=== PATIENT | male | born 1970 | race Two or more races ===

== ENCOUNTER 2024-02-20 15:06 | Outpatient (AMB) | payer MEDICAID, SELFPAY ==
--- NOTE | 2024-02-20 15:21 | A.OFFVIS_ITS ---
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 Patient reports pain at the PIP and MCP joints, bilaterally. Patient denies numbness and tingling. Has not tried steroid injections or PT/OT. Denies any prior injuries or surgeries to the hands. Patient is interested on a steroid injection day. 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 He is ESL and speaks some Chinese. No giving officer used today He complains of painful locking & catching of his bilateral middle & ring fingers, onset ~2 months ago. He says he had a prior injection ~1 year ago, Right Ring finger, which may have been done in [place]. He also complains of pain in his MCP & PIP joints of his fingers. He says he has been avoiding making a full fist due to his finger locking. 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 Review of Systems Const All systems reviewed & are unremarkable except as noted in HPI and below Physical Exam Vital Signs: BMI result Body Mass Index 34.9 Const General: cooperative, healthy appearing and no acute distress Orientation/consciousness: patient oriented x3 HEENT Head: Yes normocephalic and Yes atraumatic Eyes EOM: EOMs intact bilaterally Resp Effort & Inspection: normal respiratory effort and able to speak in complete sentences Cardio Jugular venous distension: no JVD Skin General skin exam: turgor normal Rashes: no rashes Neuro General: patient oriented x3 Extrem Other: Evaluation of Bilateral Upper Extremity: The patient is alert, oriented, and in no acute distress Neuro: Median, Ulnar, Radial nerves motor and sensory grossly intact Vascular: Cap refill brisk ROM: Initially he had some stiffness in all his digits bilaterally. He could only bring his fingertips ~8cm from his palm and back into extension We worked on ROM exercises today in clinic for more than 15 minutes, before leaving clinic he could bring his fingers closed to a fist and back into extension Visible & palpable locking & catching of the middle & ring fingers bilaterally Tender over the a1 piter of the middle & ring fingers bilaterally Skin: No lacerations or abrasions. General: No Ecchymosis. No Erythema or evidence of infection. Psych Appearance: grossly normal Affect: normal affect Attitude: cooperative Office Procedures AMB Fracture Care Details: No fracture, injections [id number] x 2 Fracture Billing Code: Fracture Billing Code Assessment & Plan Assessment & Plan (1) Trigger finger, right middle finger: Code(s): M65.331 - Trigger finger, right middle finger Category: Medical (2) Trigger finger, right ring finger: Code(s): M65.341 - Trigger finger, right ring finger Category: Medical (3) Trigger finger, left middle finger: Code(s): M65.332 - Trigger finger, left middle finger Category: Medical (4) Trigger finger, left ring finger: Code(s): M65.342 - Trigger finger, left ring finger Category: Medical (5) Stiffness of joints of both hands: Code(s): M25.641 - Stiffness of right hand, not elsewhere classified; M25.642 - Stiffness of left hand, not elsewhere classified Category: Medical Plan Assessment & Plan: 1. Right middle finger trigger finger 2. Right ring finger trigger finger 3. Left middle finger trigger finger 4. Left ring finger trigger finger I educated her about this condition I discussed operative and non-operative treatment options The patient would like to proceed with injections today, some for each hand He is hesitant to consider surgery as he says he cannot afford to take the time off of work to recover. He declined any OT hand therapy He was given a note for work to work light duty, with a 4lb weight limit, for the next 2 days The risks and benefits of operative treatment were discussed with the patient and the patient wishes to proceed with surgery. These risks include, but are not limited to risk of damage to blood vessels, nerves, tendons, infection, recurrence, incomplete relief of preoperative symptoms, persistent pain, possible need for further surgery and the risks associated with regional blocks and anesthesia. Injection #1: The risks and benefits of a steroid injection including but not limited to risk of damage to blood vessels, nerves, tendons, infection, skin bleaching, failure to improve symptoms, increased pain, and possible need for further injections or other intervention were discussed with the patient and the patient wishes to proceed with the steroid injection. Once consent was obtained, I sterilely prepped the area over the A1 piter of the flexor tendon sheath of the Right Middle finger. I then injected the flexor tendon sheath with a combination of 1 mL of dexamethasone (4mg/ml), and 1% lidocaine. The patient tolerated the procedure well with no complications. Injection #2: The risks and benefits of a steroid injection including but not limited to risk of damage to blood vessels, nerves, tendons, infection, skin bleaching, failure to improve symptoms, increased pain, and possible need for further injections or other intervention were discussed with the patient and the patient wishes to proceed with the steroid injection. Once consent was obtained, I sterilely prepped the area over the A1 piter of the flexor tendon sheath of the Left Ring finger. I then injected the flexor tendon sheath with a combination of 1 mL of dexamethasone (4mg/ml), and 1% lidocaine. The patient tolerated the procedure well with no complications. If the patient continues to have locking and catching 4-6 weeks following this injection, they may call to schedule appointment to discuss alternative treatment options He may make an appointment in 3-4 weeks to have his other fingers injected if he wants. 5. Bilateral hand stiffness Likely secondary to disuse I educated him about this condition We worked on ROM exercises today in clinic I recommend he work on ROM exercises at home, 20X daily for minimum 10 seconds each Please note that greater than 30 minutes was spent with this patient going over the history, evaluating the patient and radiographs, formulating possible treatment options, discussing them with the patient, and documenting the visit. Scribed for Michaela Dobbins MD by Brett Jamil, medical research tech, on 02/20/24 at 3:40 PM, EST. Coding Level of Care Code Est Pt Level 4 (90983) Diagnoses Trigger finger, right middle finger M65.331 Trigger finger, right ring finger M65.341 Trigger finger, left middle finger M65.332 Trigger finger, left ring finger M65.342 Stiffness of joints of both hands M25.641; M25.642 CPT Codes Fracture Care - Fracture Billing Code: Fracture Billing Code ([id number])
[2024-02-20 15:23] VITALS: BMI 34.9
== END 2024-02-20 16:40 | disposition home or self-care (01) ==
PROVIDERS: PCP Nurse Practitioner Family; Visit Provider Orthopaedic Surgery
DX: M65.331 Trigger finger, right middle finger (principal); M65.341 Trigger finger, right ring finger; M65.332 Trigger finger, left middle finger; M65.342 Trigger finger, left ring finger; M25.641 Stiffness of right hand, not elsewhere classified; M25.642 Stiffness of left hand, not elsewhere classified
CPT/HCPCS: 20550; 99203

== ENCOUNTER → 2024-02-20 15:06 | Outpatient (BNVA) | payer MEDICAID, SELFPAY | PROVIDERS: PCP Nurse Practitioner Family; Visit Provider Orthopaedic Surgery | DX: M65.331 Trigger finger, right middle finger (principal); M65.341 Trigger finger, right ring finger; M65.332 Trigger finger, left middle finger; M65.342 Trigger finger, left ring finger; M25.641 Stiffness of right hand, not elsewhere classified; M25.642 Stiffness of left hand, not elsewhere classified | CPT/HCPCS: 20550; 99202; J1100; J2003 ==

== ENCOUNTER 2024-03-19 15:25 | Outpatient (AMB) | payer MEDICAID, SELFPAY ==
--- NOTE | 2024-03-19 16:13 | MHC.OFFVIS ---
Vital Signs 03/19/24 16:23 Height 5 ft 5 in Weight 210 lb BMI 34.9 Intake Visit Reasons: OV - B/L trigger finger, last inj 02/20/24 Intake Note: Mayda is a 53 yo right hand dominant male who presents today for a follow up evaluation of bilateral middle and ring trigger fingers. Patient's right middle finger and left ring fingers were injected on 02/20/24 however the injection did not help with his left hand ring finger. States unable to fully bend his finger down to make a full fist. Allergies No Known Allergies Allergy (Verified 03/19/24 16:22) HPI HPI OV - B/L trigger finger, last inj 02/20/24: Details: Mayda is a 53 year old right hand dominant [place] man who returns to discuss his bilateral trigger fingers He is ESL and speaks some Scottish. No salesperson surgical appliances used today He complains of painful locking & catching of his bilateral middle & ring fingers, onset ~3 months ago. He was last seen and his right middle & left ring fingers were injected on 02/20/24. He says this helped his right middle finger, but he continues to have painful locking of his left ring finger. He says he is bothered mostly by his left hand He also complains of pain in his MCP & PIP joints of his fingers. He has been working on ROM exercises at home. 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 Injection for the right middle finger made that feel much better. The right ring finger locks and catches but it does not hurt him. Visible but mild catching of the Left middle & Right ring fingers. He says these do not bother him very much right now. He is most Tender over the a1 piter of the Left ring finger, and still has locking and catching of the left ring finger. This is his most bothersome complaint and what he wants taken care of. No swelling or erythema.. Assessment & Plan Assessment & Plan (1) Trigger finger, right middle finger: Code(s): M65.331 - Trigger finger, right middle finger Category: Medical (2) Trigger finger, right ring finger: Code(s): M65.341 - Trigger finger, right ring finger Category: Medical (3) Trigger finger, left middle finger: Code(s): M65.332 - Trigger finger, left middle finger Category: Medical (4) Trigger finger, left ring finger: Code(s): M65.342 - Trigger finger, left ring finger Category: Medical (5) Stiffness of joints of both hands: Code(s): M25.641 - Stiffness of right hand, not elsewhere classified; M25.642 - Stiffness of left hand, not elsewhere classified Category: Medical Plan Assessment & Plan: 1. Left ring finger trigger finger, S/P injection Date of injection: 02/20/24 No improvement with injection This is his primary complaint today 4. Left middle finger trigger finger Patient said this was not bothering him very much and did not want an injection today. 2. Right ring finger trigger finger Patient said that this was also not bothering him very much and did not want an injection today. 3. Right middle finger trigger finger, S/P injection Date of injection: 02/20/24 Improved with injection, now not bothering him at all. I educated her about this condition I discussed operative and non-operative treatment options The patient declined any injections today, as his other fingers are not causing him a large amount of pain, with the exception of the left ring finger. He wanted another injection in the left ring finger, but I felt it was too early for him to have another injection in this finger. He is hesitant to consider surgery as he says he cannot afford to take the time off of work to recover at this time He declined any OT hand therapy He was given a note for work to work light duty, with a 4lb weight limit for the left hand, until his next appointment He will follow up in 4 weeks to see how his left hand is doing. Consider possible repeat injection for the left ring finger, and discuss surgical options for the left ring finger sometime on 06/2024 or 07/2024, when he thinks he might be able to get some time off from work. Please note that greater than 30 minutes was spent with this patient documenting the visit, performing physical exam, and particularly discussing treatment options with the patient. 5. Bilateral hand stiffness Likely secondary to disuse I educated him about this condition We worked on ROM exercises today in clinic I recommend he work on ROM exercises at home, 20X daily for minimum 10 seconds each Scribed for Michaela Dobbins MD by Brett Jamil, medical laboratory technicians, on 03/19/24 at 4:40 PM, EST. Coding Level of Care Code Est Pt Level 4 (58332) Diagnoses Trigger finger, right middle finger M65.331 Trigger finger, right ring finger M65.341 Trigger finger, left middle finger M65.332 Trigger finger, left ring finger M65.342 Stiffness of joints of both hands M25.641; M25.642
[2024-03-19 16:23] VITALS: BMI 34.9
== END 2024-03-19 16:30 | disposition home or self-care (01) ==
PROVIDERS: PCP Nurse Practitioner Family; Visit Provider Orthopaedic Surgery
DX: M65.331 Trigger finger, right middle finger (principal); M65.341 Trigger finger, right ring finger; M65.332 Trigger finger, left middle finger; M65.342 Trigger finger, left ring finger; M25.641 Stiffness of right hand, not elsewhere classified; M25.642 Stiffness of left hand, not elsewhere classified
CPT/HCPCS: 99214

== ENCOUNTER → 2024-03-19 15:25 | Outpatient (BNVA) | payer MEDICAID, SELFPAY | PROVIDERS: PCP Nurse Practitioner Family; Visit Provider Orthopaedic Surgery | DX: M65.331 Trigger finger, right middle finger (principal); M65.332 Trigger finger, left middle finger; M65.341 Trigger finger, right ring finger; M65.342 Trigger finger, left ring finger; M25.641 Stiffness of right hand, not elsewhere classified; M25.642 Stiffness of left hand, not elsewhere classified | CPT/HCPCS: 99212 ==

== ENCOUNTER 2024-04-16 15:26 | Outpatient (AMB) | payer MEDICAID, SELFPAY ==
--- NOTE | 2024-04-16 15:33 | MHC.OFFVIS ---
Vital Signs 04/16/24 15:34 Height 5 ft 5 in Weight 210 lb BMI 34.9 Intake Visit Reasons: OV-Left ring finger injection vs surgery Intake Note: Mayda is a 53 year old right hand dominant male who presents today for a follow up of left ring trigger finger, S/P steroid injection DOS: 02/20/24. Patient would like to repeat injection today. Allergies No Known Allergies Allergy (Verified 04/16/24 15:50) HPI HPI OV-Left ring finger injection vs surgery: Details: Mayda is a 53 year old right hand dominant [place] man who returns to discuss his bilateral trigger fingers. He is Romanian as SL and speaks Romanian comfortably in clinic today. He continues to complain of painful locking of his left ring finger. His left ring finger was last injected on 02/20/24, with no relief. He has been working some on his range of motion since last time. 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 He is concerned about time off from work, but believes he may be ready to have the surgery perhaps in June of July of next year. 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 He can make a tight fist on the right and extend all his digits of his right hand without any difficulty All in all he says his right hand is fine. Injection for the right middle finger made that feel much better. The right ring finger locks and catches but it does not hurt him. He is most tender over the a1 piter of the left ring finger, and still has locking and catching of the left ring finger. This is his most bothersome complaint and what he wants taken care of today Psych Appearance: grossly normal Affect: normal affect Attitude: cooperative Office Procedures AMB Fracture Care Details: No fracture, injection Fracture Billing Code: Fracture Billing Code Assessment & Plan Assessment & Plan (1) Trigger finger, right middle finger: Code(s): M65.331 - Trigger finger, right middle finger Category: Medical (2) Trigger finger, right ring finger: Code(s): M65.341 - Trigger finger, right ring finger Category: Medical (3) Trigger finger, left middle finger: Code(s): M65.332 - Trigger finger, left middle finger Category: Medical (4) Trigger finger, left ring finger: Code(s): M65.342 - Trigger finger, left ring finger Category: Medical (5) Stiffness of joints of both hands: Code(s): M25.641 - Stiffness of right hand, not elsewhere classified; M25.642 - Stiffness of left hand, not elsewhere classified Category: Medical Plan Assessment & Plan: 1. Left ring finger trigger finger, S/P injection Date of injection: 04/16/24, 02/20/24 No improvement with prior injection This is his primary complaint today 2. Right middle finger trigger finger, S/P injection Date of injection: 02/20/24 Improved with injection, now not bothering him at all. 3. Left middle finger trigger finger Patient said this was not bothering him 4. Right ring finger trigger finger Patient said that this was also not bothering him I educated him about this condition I discussed operative and non-operative treatment options The patient continues to complain of pain in his left ring finger, and would like a repeat injection. He is not interested in injections for his other trigger fingers at this time He is hesitant to consider surgery as he says he cannot afford to take the time off of work to recover at this time. He may consider surgery sometime in 06/2024 or 07/2024 when he could get time off of work. He declined any OT hand therapy, this may be due to an insurance concern as he is here on a Green card. Injection #1: The risks and benefits of a steroid injection including but not limited to risk of damage to blood vessels, nerves, tendons, infection, skin bleaching, failure to improve symptoms, increased pain, and possible need for further injections or other intervention were discussed with the patient and the patient wishes to proceed with the steroid injection. Once consent was obtained, I sterilely prepped the area over the A1 piter of the flexor tendon sheath of the Left ring finger. I then injected the flexor tendon sheath with a combination of 1 mL of dexamethasone (4mg/ml), and 1% lidocaine. The patient tolerated the procedure well with no complications. After the injection I had him make a fist, his left ring finger locked down very hard when making a fist, and some force was required to unlock his finger. I explained to him that I think it is not very likely that the injection alone is going to solve this problem, and that I think he should consider an A1 piter release. He will follow up in 2 months to see how he is doing, and to possibly discuss surgery for his left ring trigger finger sometime in July 17. Bilateral hand stiffness Likely secondary to disuse I educated him about this condition He has made some good improvements in his ROM. His right hand range of motion is normal. On the left side he can not bring the left ring finger into a tight fist, largely because it will lock up. I recommend he work on ROM exercises at home Scribed for Michaela Dobbins MD by eloisa Rivera scribe, on 04/16/24 at 3:40 PM, EST. Scribe Plan - Not visible on output: Scribed for Michaela Dobbins MD by eloisa Rivera scribe, on [ ] at [ ], EST. Coding Level of Care Code Est Pt Level 3 (94109) Diagnoses Trigger finger, right middle finger M65.331 Trigger finger, right ring finger M65.341 Trigger finger, left middle finger M65.332 Trigger finger, left ring finger M65.342 Stiffness of joints of both hands M25.641; M25.642 CPT Codes Fracture Care - Fracture Billing Code: Fracture Billing Code ([id number])
[2024-04-16 15:34] VITALS: BMI 34.9
== END 2024-04-16 15:50 | disposition home or self-care (01) ==
PROVIDERS: PCP Nurse Practitioner Family; Visit Provider Orthopaedic Surgery
DX: M65.331 Trigger finger, right middle finger (principal); M65.341 Trigger finger, right ring finger; M65.332 Trigger finger, left middle finger; M65.342 Trigger finger, left ring finger; M25.641 Stiffness of right hand, not elsewhere classified; M25.642 Stiffness of left hand, not elsewhere classified
CPT/HCPCS: 99213

== ENCOUNTER → 2024-04-16 15:26 | Outpatient (BNVA) | payer MEDICAID, SELFPAY | PROVIDERS: PCP Nurse Practitioner Family; Visit Provider Orthopaedic Surgery | DX: M65.342 Trigger finger, left ring finger (principal); M65.331 Trigger finger, right middle finger; M65.341 Trigger finger, right ring finger; M65.332 Trigger finger, left middle finger; M25.641 Stiffness of right hand, not elsewhere classified; M25.642 Stiffness of left hand, not elsewhere classified | CPT/HCPCS: 20550; 99212; J1100; J2003 ==

== ENCOUNTER 2024-06-19 15:05 | Outpatient (AMB) | payer MEDICAID, SELFPAY ==
[2024-06-19 15:08] VITALS: BMI 34.9
--- NOTE | 2024-06-19 15:08 | MHC.OFFVIS ---
Vital Signs 06/19/24 15:08 Height 5 ft 5 in Weight 210 lb BMI 34.9 Intake Visit Reasons: OV-LT RF trigger injection follow up-inj 04/16/24 Intake Note: Mayda is a 53 year old right hand dominant male who presents today for a follow up of left ring trigger finger, S/P steroid injection 04/16/2024. Patient reports that this last injection was not helpful. His finger continues to lock and catch. He would like to discuss possible surgical intervention. Allergies No Known Allergies Allergy (Verified 06/19/24 15:11) HPI HPI OV-LT RF trigger injection follow up-inj 04/16/24: Details: Mayda is a 53 year old right hand dominant English man who returns to discuss his bilateral trigger fingers. He is Wolof as SL and speaks Wolof comfortably in clinic today. He continues to complain of painful locking of his left ring finger. His left ring finger was last injected on 04/16/24, with very limited relief. He would like to discuss possible surgery. He has been working some on his range of motion since last time. 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 He says he is willing to take 1 week off of work after surgery, but he needs to return to work after the week to provide for his family. 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 He is most tender over the a1 piter of the left ring finger, and still has locking and catching of the left ring finger. This is his most bothersome complaint Psych Appearance: grossly normal Affect: normal affect Attitude: cooperative Assessment & Plan Assessment & Plan (1) Trigger finger, left ring finger: Code(s): M65.342 - Trigger finger, left ring finger Category: Medical (2) Trigger finger, left middle finger: Code(s): M65.332 - Trigger finger, left middle finger Category: Medical (3) Trigger finger, right middle finger: Code(s): M65.331 - Trigger finger, right middle finger Category: Medical (4) Trigger finger, right ring finger: Code(s): M65.341 - Trigger finger, right ring finger Category: Medical (5) Stiffness of joints of both hands: Code(s): M25.641 - Stiffness of right hand, not elsewhere classified; M25.642 - Stiffness of left hand, not elsewhere classified Category: Medical Plan Assessment & Plan: 1. Left ring finger trigger finger, S/P injection Date of injection: 04/16/24, 02/20/24 No improvement with prior injection This is his primary complaint today I educated him about this condition I discussed operative and non-operative treatment options The patient continues to complain of pain in his left ring finger, and does not want a repeat injection I recommend surgery, and he is in agreement He declined any OT hand therapy, this may be due to an insurance concern as he is here on a Green card. He would like to return to work on light duty after 1 week off following surgery. He says he works 7 days a week to provide for his family. Xin will prepare a note saying return to work 1 week following surgery, light duty with a 1lb weight limit with his LUE, keep clean & dry. The risks and benefits of operative treatment were discussed with the patient and the patient wishes to proceed with surgery. These risks include, but are not limited to risk of damage to blood vessels, nerves, tendons, infection, recurrence, incomplete relief of preoperative symptoms, persistent pain, possible need for further surgery and the risks associated with regional blocks and anesthesia. The plan is to take the patient to the operating room sometime in the next few weeks for the following procedures: 1. Left ring finger trigger release, under local All of the preoperative paperwork including the consent was reviewed today. All the patient's questions were answered. The patient understands that they will be contacted by our attraction attendant soon to schedule this procedure He denies Diabetes, blood thinners, asthma, heart, lung, kidney issues 3. Right middle finger trigger finger, S/P injection Date of injection: 02/20/24 Improved with injection, now not bothering him at all. 2. Left middle finger trigger finger Patient said this was not bothering him 4. Right ring finger trigger finger Patient said that this was also not bothering him 5. Bilateral hand stiffness Likely secondary to disuse I educated him about this condition He has made some good improvements in his ROM. His right hand range of motion is normal. On the left side he can not bring the left ring finger into a tight fist, largely because it will lock up. I recommend he work on ROM exercises at home Scribed for Michaela Dobbins MD by Brett Jamil, medical secretary receptionist, on 06/19/24 at 3:30 PM, EST. Scribe Plan - Not visible on output: Scribed for Michaela Dobbins MD by Brett Jamil medical secretary receptionist, on [ ] at [ ], EST. Coding Level of Care Code Est Pt Level 4 (09133) Diagnoses Trigger finger, left ring finger M65.342 Trigger finger, left middle finger M65.332 Trigger finger, right middle finger M65.331 Trigger finger, right ring finger M65.341 Stiffness of joints of both hands M25.641; M25.642
--- OUTSIDE RECORDS SUMMARY | 2024-06-19 16:06 | XMS_ITS | Clinical Summary ---
Author Organization [facility] Address [address] [place] [address] Care Team Providers Care Crowning Inspector Name Role Phone Annabella Sharp ARVIN Primary Care Provider [phone] Encounters Date Type Department Care Team Description 05/29/2024 Telephone Gastroenterology - [place] 175 [facility] [address] [phone] Austyn Lim MD SPECIAL PROCEDURE from Last 3 Months Social History Tobacco Use Types Packs/Day Years Used Date Smoking Tobacco: Never Assessed Sex and Gender Information Value Date Recorded Sex Assigned at Not on file Gender Identity Not on file Sexual Orientation Not on file Plan of Treatment Upcoming Encounters Date Type Department Care Team (Late st Contact Info) Description 10/10/2024 12:30 PM EDT Appointment [facility] Endoscopy [address] [place] [phone] Burton Ruiz MD [address] [address] Health Maintenance Due Date Last Done Comments DTaP,Tdap,and Td Vaccines (1 - Tdap) 1991 Hepatitis B Vaccines (1 of 3 - 19+ 3-dose series) 1991 Cholesterol Screening (Lipid Panel) 04/16/2022 Colorectal Cancer Screening: Colonoscopy 04/16/2022 HIV Screening 04/16/2022 Hepatitis C Screening 04/16/2022 Lung Cancer Screening (Low D ose CT) 04/16/2022 Social Influencers of Health Screening 04/16/2022 Zoster Vaccines (1 of 2) 2022 COVID-19 Vaccine ( - 2023-2 5 season) 2024 Influenza Vaccine (#1) 2024 Depression Screening 01/16/2025 01/17/2024 HIB Vaccines Aged Out No longer eligi ble based on patient's age to complete this topic HPV Vaccines Aged Out No longer eligi ble based on patient's age to complete this topic Hepatitis A Vaccines Aged Out No long er eligible based on patient's age to complete this topic IPV Vaccines Aged Out No longer eligi ble based on patient's age to complete this topic MMR Vaccines Aged Out No longer eligi ble based on patient's age to complete this topic Meningococcal ACWY Vaccine Aged Out N o longer eligible based on patient's age to complete this topic Pneumococcal Vaccine: Pediat rics (0 to 5 Years) and At-Risk Patients (6 to 64 Years) Aged Out No longer eligi ble based on patient's age to complete this topic RSV Immunization Patients Un gale 20 months Aged Out No longer eligible b ased on patient's age to complete this topic Varicella Vaccines Aged Out No longer eligible based on patient's age to complete this topic Care Teams Crowning Inspector Relationship Specialty Start Date End Date Annabella Sharp NP [address] [place] [id number] PCP - General 01/23/24
--- OUTSIDE RECORDS SUMMARY | 2024-06-19 16:06 | XMS_ITS | Encounter Summary ---
Author Organization [facility] Address [address] [place] [address] Care Team Providers Care Terminal Make Up Operator Name Role Phone Annabella eason ARVIN Primary Care Provider [phone] Reason for Visit * Reason Onset Date Comments SPECIAL PROCEDURE 05/29/2024 Encounter Details Date Type Department Care Team ([facility] st Contact Info) Description 05/29/2024 Telephone Gastroenterology - [place] [address] [place] [phone] Austyn Lim MD [address] [place] [address] SPECIAL PROCEDURE Social History Tobacco Use Types Packs/Day Years Used Date Smoking Tobacco: Never Assessed Sex and Gender Information Value Date Recorded Sex Assigned at Not on file Gender Identity Not on file Sexual Orientation Not on file documented as of this encounter Progress Notes * Sophia Ruiz - 05/31/2024 3:29 PM EST Scheduled. * Stacia Ragland - 05/31/2024 10:08 AM EST Patient returning call to reschedule colonoscopy. Please call after 3:00 pm * Sophia Ruiz - 05/31/2024 9:39 AM EST 2nd attempt to schedule an appointment patient left message to call back Screening-any * Macy Garsia - 05/30/2024 3:09 PM EST Patient calling back to reschedule, please call back to [phone] * Sophia Ruiz - 05/30/2024 8:40 AM EST 1st attempt to schedule an appointment patient left message to call back * Macy Garsia - 05/29/2024 3:02 PM EST Patient calling back to reschedule cancelled procedure (provider out) documented in this encounter Plan of Treatment Upcoming Encounters Date Type Department Care Team (Late st Contact Info) Description 10/10/2024 12:30 PM EDT Appointment [facility] Endoscopy [address] [place] [phone] Burton Ruiz MD [address] [address] documented as of this encounter Visit Diagnoses Not on filedocumented in this encounter Care Teams Terminal Make Up Operator Relationship Specialty Start Date End Date Annabella Sharp NP [address] [place] [address] PCP - General 01/23/24 documented as of this encounter
--- OUTSIDE RECORDS SUMMARY | 2024-06-19 16:06 | XMS_ITS | Clinical Summary ---
Author Organization [facility] Address [address] [place] [address] Care Team Providers Care Pattern Assembler Name Role Phone Annabella Sharp COOK PRESSURE Primary Care Provider [phone] Source Comments PLEASE NOTE, if this patient is a minor, it may be UNLAWFUL to discuss sensitive information that is contained in these records (such as FAMILY PLANNING, MENTAL HEALTH or SUBSTANCE ABUSE) with the minor patient's parent or other person without the patient's specific authorization.[facility] Allergies No known active allergies Medications sildenafiL (VIAGRA) 50 mg tablet Take 1 Tablet by mouth once daily as needed for erectile dysfunction 9 Tablet 3 03/04/20 22 Active fluticasone (FLONASE) 50 mcg/actuation nasal sprayIndications:A llergic rhinitis, unspecified seasonality, unspecified trigger Place 1 [place] in both nostrils twice a day 16 g 2 04/29/20 22 Active blood pressure test kit-[facility] SMBP Program - 3x/week 1 Kit 07/30/19 23 Active ketoconazole (NIZORAL) 2 % [id number] [place] [phone] 120.00 mL 1 15 Authorized by: ZULEYKA AGGARWAL 10/17/19 23 Active fexofenadine (ARI) 180 mg tabletIndications: Non-seasonal allergic rhinitis, unspecified trigger Take 1 Tablet by mouth once daily 30 Tablet 2 09/01/19 24 Active triamcinolone (NASACORT) 55 mcg nasal inhalerIndications :Non-seasonal allergic rhinitis, unspecified trigger Place 2 Sprays into the nostril(s) once daily 16 g 2 09/01/19 24 Active acetaminophen (TYLENOL) 500 mg tabletIndications: Chronic pain of both ankles Take 2 Tablets by mouth every 8 (eight) hours as needed for pain (Maximum 4000 mg/day) 120 Tablet 1 01/17/20 Active ibuprofen 800 mg tabletIndications: Chronic pain of both ankles Take 1 Tablet by mouth 3 (three) times daily as needed for pain 60 Tablet 1 01/17/20 24 Active atorvastatin (LIPITOR) 80 mg tabletIndications: Mixed hyperlipidemia Take 1 Tablet by mouth nightly at bedtime For cholesterol 90 Tablet 1 01/24/20 24 Active metFORMIN (GLUCOPHAGE) 500 mg tabletIndications: Prediabetes Take 1 Tablet by mouth 2 (two) times daily with a meal For prediabetes 180 Tablet 1 01/24/20 Active levothyroxine 88 mcg tabletIndications: Hypothyroidism, unspecified type Take 1 Tablet by mouth every morning before breakfast For thyroid 90 Tablet 1 01/31/20 24 Active Active Problems Problem Noted Date Diagnosed Date Chronic rhinitis 05/07/2024 Overview (05/07/2024): Saw ENT on 04/2024. Class 2 severe obesity due t o excess calories with serious comorbidity and body mass index (BMI) of 36.0 to 36.9 in adult ([facility]) 07/24/2023 Prediabetes 03/04/2022 Erectile dysfunction due to arterial insufficien cy 03/04/2022 Abdominal bloating 11/11/2020 Other headache syndrome 08/03/2020 Snoring 08/03/2020 Slow transit constipation 08/03/2020 Trigger middle finger of right hand 08/03/2020 Mixed hyperlipidemia 08/03/2020 Subclinical hypothyroidism 06/26/2020 Hepatitis A immune Overview (06/26/2020): per serology Resolved Problems Problem Noted Date Diagnosed Date Resolved Date Class 1 obesity due to exces s calories without serious comorbidity with body mass index (BMI) of 33.0 to 33.9 in adult 03/04/202203/2024 Essential hypertension 05/07 Encounters Date Type Department Care Team Description 05/28/2024 Interim Notes [address] [phone] Annabella Sharp FNP Snoring (Primary Dx) 05/07/2024 4:00 PM EST Telemedicine Visit [facility] [address] [place] [address] Annabella Sharp, TARAH Prediabetes (Primary Dx); Mixed hyperlipidemia 05/07/2024 Travel from Last 3 Months Immunizations Name Administration Dates Next Due Flu, Preservative Free 04/23/2021,02/17/2019 PFIZER COVID VACCINE, PURPLE CAP, 12+ 11/03/2021 TDAP 04/23/2021 Family History Medical History Relation Name Comments Heart Problems Father Diabetes Mother Heart Problems Mother Stomach Cancer Paternal Aunt Relation Name Status Comments Father Mother Paternal Aunt Alive Social History Tobacco Use Types Packs/Day Years Used Date Smoking Tobacco: Every Day Cigarettes 0.6 35 Smokeless Tobacco: Never Tobacco Cessation:Ready to Q uit: Yes; Counseling Given: Yes Comments:Stil smoking Alcohol Use Standard Drinks/Week Comments Not Currently 0 (1 standard drink = 0.6 oz pur e alcohol) Social Connections Answer Date Recorded Connectedness 0 01/25/2024 Financial Resource Strain Answer Date R ecorded Financial Resource Strain 0 2020 Stress Answer Date Recorded Stress 0 06/18/2020 Physical Activity Answer Date Recorded Physical Activity 0 06/18/2020 Food Insecurity Answer Date Recorded Food 0 02/08/2024 Transportation Needs Answer Date Record ed Transportation 0 06/18/2020 Housing Stability Answer Date Recorded Housing 0 06/18/2020 Safety and Environment Answer Date Richy rded Safety 0 06/18/2020 Utilities Answer Date Recorded Utilities 0 06/18/2020 Employment Answer Date Recorded Stress 0 01/25/2024 Sex and Gender Information Value Date Recorded Sex Assigned at Male 06/18/2020 11:51 AM PST Legal Sex Male 12:32 PM PDT Gender Identity Male 06/18/2020 11:51 AM PST Sexual Orientation Straight 06/18/2020 11 :51 AM PST Last Filed Vital Signs Vital Sign Reading Time Taken Comments Blood Pressure 130/84 01/17/2024 3:04 PM EDT Pulse 79 01/17/2024 3:04 PM EDT Temperature 36.9 ??C (98.4 ??F) 01/17/2024 3:04 PM ED T Respiratory Rate 16 01/17/2024 3:04 PM EDT Oxygen Saturation 98% 01/17/2024 3:04 PM EDT Inhaled Oxygen Concentration - - Weight 99.8 kg (220 lb) 01/17/2024 3:04 PM EDT Height 165.1 cm (5' 5 ) 01/17/2024 3:04 PM EDT Body Mass Index 36.61 01/17/2024 3:04 PM EDT Plan of Treatment Health Maintenance Due Date Last Done Comments CT Colonography 2017 Colonoscopy 2017 Colorectal Cancer Screening 2017 FIT/gFOBT 2017 Fecal DNA 2017 Flexible Sigmoidoscopy 2017 Alcohol and Drug Screen 05/15/2024 01/17/20 24, 07/24/2023, 07/29/2022, Additional history exists Depression Annual Screen 05/15/2024 01/17/2024 Annual Preventive Care Visit 01/16/202508/2023, 11/03/2021, 04/23/2021 Tobacco Cessation Counseling (#1) 01/16/2025 023 Lung Cancer Screening 02/12/2025 02/13/2024, 024 TSH Monitoring 03/27/2025 03/27/2024, 09/0 08/2023, 12/02/2022, Additional history exists Diabetes Screening 05/16/2025 05/16/2024, 0 01/17/2024, 01/17/2024, Additional history exists Lipid Screening 05/16/2025 05/16/2024, 09/0 08/2023, 07/24/2023, Additional history exists Imm-DTaP/Tdap/Td (2 - Td or Tdap) 04/23/2031 021 HIV Screening Completed 06/18/2020 Hepatitis C Screening Completed 06/18/2020 Imm-Influenza Discontinued 04/23/2021, 02/17/2019 [id number] Discontinued 11/03/2021, 10/13, 10/04/2020 Imm-Hepatitis B Discontinued Imm-Pneumococcal Discontinued Imm-Zoster, Recombinant Discontinued Goals Goal Patient Goal Type Associated Problems Recent Progress Patient-Stated? Author Blood Pressure < 130/80 Blood Pressure 130/84(2023 3:04 PM EDT) No Percy Mcclellan PharmD Hypertension: Decrease sodium intake General On track( 023 11:55 AM PDT) No Percy Mcclellan PharmD Procedures Procedure Name Priority Date/Time Associated Diagnosis Comments HGBA1C W/MPG Routine 05/16/2024 12:48 PM EST Prediabetes LIPID PANEL Routine 05/16/2024 12:48 PM EST Mixed hyperlipidemia REFERRAL TO EAR, NOSE AND THROAT Routine 05/02/2024 3:00 AM EST Non-seasonal allergic rhinitis, unspecified trigger REFERRAL SCANNED DOCUMENT 04/16/2024 3:00 AM EST TSH W/RFLX FREE T4 Routine 03/27/2024 3: 09 PM EST Hypothyroidism, unspecified type REFERRAL SCANNED DOCUMENT 03/19/2024 3:00 AM EST LOW DOSE CT LUNG SCREENING Routine 02/13/2024 3:00 AM EDT Cigarette nicotine dependence without complication ANTIBODY HIV-1&HIV-2 SINGLE RESULT Routine 06/18/2020 3:43 PM EST Essential hypertension Routine general medical examination at a health care facility Pain in both hands HEPATITIS C ANTIBODY Routine 06/18/2020 3:43 PM EST Essential hypertension Routine general medical examination at a health care facility Pain in both hands from Last 3 Months or Most Recently Relevant to Health Maintenance Results * (ABNORMAL) HGBA1C W/MPG (05/16/2024 12:48 PM EST) HEMOGLOBIN A1C 6.0(H) <5.7 % of total Hgb [facility] Comment: For someone without known diabetes, a hemoglobin A1c value between 5.7% and 6.4% is consistent with prediabetes and should be confirmed with a follow-up test. For someone with known diabetes, a value <7% indicates that their diabetes is well controlled. A1c targets should be individualized based on duration of diabetes, age, comorbid conditions, and other considerations. This assay result is consistent with an increased risk of diabetes. Currently, no consensus exists regarding use of hemoglobin A1c for diagnosis of diabetes for children. MEAN PLASMA GLUCOSE 136 mg/dL (calc) [facility] Blood Blood / Unknown 05/16/2024 1 2:48 PM EST 05/16/2024 12:49 PM EST Narrative [facility] - 05/17/2024 3:33 AM EST FASTING:YES Annabella Sharp [facility] - BLOOD DRAW Edited Result - Final [employer] [facility] [address] [address], [employer] [address] [address] * (ABNORMAL) LIPID PANEL (05/16/2024 12:48 PM EST) CHOLESTEROL, TOTAL 177 <200 mg/dL [facility] HDL CHOLESTEROL 43 > OR = 40 mg/dL [facility] TRIGLYCERIDES 148 <150 mg/dL [facility] LDL-CHOLESTEROL 108(H) 99 mg/dL (calc) [facility] Comment: Reference range: <100 Desirable range <100 mg/dL for primary prevention; ?? <70 mg/dL for patients with CHD or diabetic patients with > or = 2 CHD risk factors. LDL-C is now calculated using the Dioyn-Pool calculation, which is a validated novel method providing better accuracy than the Friedewald equation in the estimation of LDL-C. Diony SS et al. PATITO. 2013;310(19): 6297-1534 (http://education.[employer]/faq/JSM187) CHOL/HDLC RATIO 4.1 <5.0 (calc) [facility] NON-HDL CHOLESTEROL 134(H) <130 mg/dL (calc) [facility] Comment: For patients with diabetes plus 1 major ASCVD risk factor, treating to a non-HDL-C goal of <100 mg/dL (LDL-C of <70 mg/dL) is considered a therapeutic option. Blood Blood / Unknown 05/16/2024 1 2:48 PM EST 05/16/2024 12:49 PM EST Narrative [employer] - 05/17/2024 3:33 AM EST FASTING:YES us Annabella Sharp [facility] - BLOOD DRAW Final Result Performing Organization Address [facility]/ZIP Co de Phone Number [employer] [address] [address], [facility] [address] [address] * REFERRAL TO EAR, NOSE AND THROAT (05/02/2024 3:00 AM EST) 05/02/2024 3:00 AM EST us Annabella Sharp COOK PRESSURE REFERRAL Final Result * REFERRAL SCANNED DOCUMENT (04/16/2024 3:00 AM EST) Only the most recent of2 resultswithin the time period is included. 04/16/2024 3:00 AM EST Annabella Sharp COOK PRESSURE SCAN REFERRAL Final Result * TSH W/RFLX FREE T4 (03/27/2024 3:09 PM EST) TSH W/REFLEX TO FT4 0.64 0.40 - 4.50 mIU/L [employer] [facility] Blood Blood / Unknown 03/27/2024 3 :09 PM EST 03/27/2024 3:09 PM EST Narrative [employer] [facility] - 03/28/2024 4:25 AM EST FASTING:NO Annabella Sharp [facility] - BLOOD DRAW Final Result [employer] [facility] [address] [address], [employer] [facility] [address] [address] * LOW DOSE CT LUNG SCREENING (02/13/2024 3:00 AM EDT) 02/13/2024 3:00 AM EDT Annabellazuly Sharp [facility] IMG CT Edited Result - Final * HEPATITIS C ANTIBODY (06/18/2020 3:43 PM EST) Pathologist [facility] HEPATITIS C VIRUS SCREEN NEGATIVE NEGATIVE [facility] Blood Blood / Unknown 06/18/2020 3 :43 PM EST 06/18/2020 7:[address] [facility] - 06/18/2020 9:45 PM EST [employer], [place] [address] Sign Letterer - Sandra Thomason MD PT ID [id number] ORD# [id number] Annabella [facility] - BLOOD DRAW Edited Result - Final Performing Organization Address [facility] [place] [place] [address], * HIV-1 & HIV-2 ANTIBODIES (06/18/2020 3:43 PM EST) [facility] HIV 1 AND 2 ANTIBODY SCREEN NEGATIVE NEGATIVE [facility] Comment: This assay is a 4th generation assay allowing for earlier detection of HIV infection by detecting the presence of the HIV-1 p24 antigen as well as the traditional antibodies to HIV type 1 (including group O) and type 2. ??Use of a 4th generation assay is the current CDC recommendation for HIV screening. Blood Blood / Unknown 06/18/2020 3 :43 PM EST 06/18/2020 7:[address] [facility] - 06/18/2020 9:46 PM EST [employer], [place] [address] Sign Letterer - Sandra Thomason MD PT ID [id number] ORD# [id number] Annabellazuly Sharp [facility] - BLOOD DRAW Edited Result - Final Performing Organization Address [facility] Co de Phone Number [address] [place] [address], from Last 3 Months or Most Recently Relevant to Health Maintenance Insurance [id number] [facility] [employer] Care Teams Pattern Assembler Relationship Specialty Start Date End Date Annabella Sharp FNP [address] [place] [address] PCP - General Internal Medicine 02/19/20
--- OUTSIDE RECORDS SUMMARY | 2024-06-19 16:06 | XMS_ITS | Data Portability ---
Author Organization [place] - [facility], Allergy Address [address] [place] [phone] Care Team Providers Care Medical Office Administrator Name Role Phone AMY ANDRADE Referring Provider [phone] Assessment Encounter Date Assessment Date Assessment LastModified by Organization Details LastModified Time 05/02/2024 05/02/2024 53-year-old male with 20-year history of nasal congestion. He notes while he was living in [place] he mostly had congestion when the weather was warm. Over the last 8 years while living in the [facility] he has noted congestion both with the warm and cold weather. He has tried antihistamines and nasal steroids without improvement. Family notes significant snoring. He is also gained weight since coming to [place]. I do not see any obvious nasal polyps or significant septal deviation. Suggest trial of ipratropium bromide nasal spray 2 sprays each nostril 3 times daily he can discontinue any other nasal sprays. Will also arrange for a sleep study. [email or web address] Not available 05/02/2024 15:16:52 Plan of Treatment Reminders Order Date Submit Date Provider Last Modified By Organization Details Last Modified Time Details Appointments None recorde d. Lab None recorde d. Referral None recorde d. Procedures polysom nograph y, diagnos tic (PROC) 2023 024 [email or web address] [facility]), [address] [place] [address], [id number], 5 14:38:41 Surgeries None recorde d. Imaging None recorde d. Medication Orders ipratro pium bromide 21 mcg (0.03 %) nasal spray 2023 024 [id number], [address] , [place], [place], [id number], 4 15:15:44 Patient TargetsNo targets recorded. Patient InstructionsNo instructions recorded. Reason for Referral None Reported. Problems Name Problem SNOMED Code Status Onset Date Resolution Date Notes Provider Name and Address Organization Details Recorded Time Chronic rhinitis 51757932 Active 024 BRANDI DING MD [address] [facility], [place], [phone], [facility] - [facility] 4 15:14:54 Snoring 76536394 Active 024 BRANDI DING MD [address] [facility], [address], [place], [phone], [facility] - [facility] 4 15:15:08 Overweight 357959787 Active 024 BRANDI DING MD [address] [facility], [address], [place], [phone], [facility] - [facility] 4 15:17:18 Problem Notes None recorded. Medical Equipment None Reported. Medications Name Sig Start Date Stop Date Status Note LastModified by Organization Details LastModified Time losartan 50 mg tablet TAKE 1 TABLET BY MOUTH EVERY MORNING FOR BLOOD PRESSURE active Not Available Not Available No t Available cyclobenzapr ine 10 mg tablet active Not Available Not Available Not Available atorvastatin 40 mg tablet TAKE 1 TABLET BY MOUTH EVERY EVENING FOR CHOLESTEROL active Not Available Not Available Not Available metformin 500 mg tablet TAKE 1 TABLET BY MOUTH TWICE DAILY WITH A MEAL FOR PREDIABETES active Not Available Not Available Not Available atorvastatin 80 mg tablet TAKE 1 TABLET BY MOUTH EVERY NIGHT AT BEDTIME FOR CHOLESTEROL active Not Available Not Available Not Available prednisone 10 mg tablet active Not Available Not Available Not Available ibuprofen 800 mg tablet TAKE 1 TABLET BY MOUTH THREE TIMES DAILY NEEDED FOR PAIN active Not Available Not Available No t Available tizanidine 4 mg tablet TAKE 1 TABLET BY MOUTH THREE TIMES DAILY FOR 7 DAYS NEEDED FOR MUSCLE SPASMS active Not Available Not Available No t Available prednisone 20 mg tablet TAKE 2 TABLETS BY MOUTH DAILY FOR 5 DAYS active Not Available Not Available N ot Available sulfamethoxa zole 800 mg-trimethop rim 160 mg tablet TAKE 1 TABLET BY MOUTH EVERY 12 HOURS FOR 7 DAYS active Not Available Not Available N ot Available acetaminophe n 500 mg tablet TAKE 2 TABLETS BY MOUTH EVERY 8 HOURS NEEDED FOR PAIN - DO NOT EXCEED 4000MG DAILY active Not Available Not Available No t Available levothyroxin e 75 mcg tablet TAKE 1 TABLET BY MOUTH DAILY active Not Available Not Available Not Available levothyroxin e 88 mcg tablet TAKE 1 TABLET BY MOUTH EVERY MORNING BEFORE BREAKFAST FOR THYROID active Not Available Not Available Not Available triamcinolon e acetonide 55 mcg nasal spray aerosol USE 2 SPRAYS IN EACH NOSTRIL DAILY active Not Available Not Available No t Available mupirocin 2 % topical ointment APPLY TOPICALLY TO THE AFFECTED AREA TWICE DAILY FOR 10 DAYS active Not Available Not Available No t Available diclofenac sodium 50 mg tablet,delay ed release TAKE 1 TABLET BY MOUTH FOUR TIMES DAILY FOR 7 DAYS active Not Available Not Available N ot Available ibuprofen 600 mg tablet TAKE 1 TABLET BY MOUTH THREE TIMES DAILY FOR 7 DAYS active Not Available Not Available N ot Available methylpredni solone 4 mg tablets in a dose pack FOLLOW PACKAGE DIRECTIONS active Not Available Not Available N ot Available ipratropium bromide 21 mcg (0.03 %) nasal spray Linneus 2 sprays 3 times a day by intranasal route. 2023 active Not Available Not Available Not Avai lable diclofenac 1 % topical gel APPLY 2 GRAMS TOPICALLY TO SKIN FOUR TIMES DAILY active Not Available Not Available No t Available Allergy Relief (fexofenadin e) 180 mg tablet TAKE 1 TABLET BY MOUTH DAILY active Not Available Not Available Not Available Vitals Date Recorded Body height Body mass index (BMI) Body weight Provider Name and Address Organization Details Last Updated DateTime 05/02/2024 165.1 cm 33.3 kg/m2 99897.47 g Joey Villatoro [place] - [facility] 05/02/2024 15:00:12 Social History Question Answer Notes LastModified by Organizat ion Details LastModified Time Tobacco Smoking Status Current Every Day Smoker BRANDI ROJO MD [address] [place] [address], [phone], [place] - [facility] 05/02/2024 15:13:01 What Is Your Level Of Alcohol Consumption? None Information not available 05/02/2024 How Much Tobacco Do You Smoke? 0.5 PPD Information not available 05/02/2024 Do You Use Any Illicit Or Recreational Drugs? No Information not available 05/02/2024 Do You Or Have You Ever Used Any Other Forms Of Tobacco Or Nicotine? Yes Information not available 05/02/2024 Sex: Unknown Functional Status None recorded. Mental Status None recorded. Family History Nothing Reported. Medical History Condition Response Hypertension Y Past Encounters Encounter ID Performer Location Encounter Start Date Encounter Closed Date Diagnosis/Indication Diagnosis SNOMED-CT Code Diagnosis ICD10 Code Diagnosis Note [id number] BRANDI SMITH MD [facility] [address] [phone] 05/02/2024 14:37:28 05/02/2024 15:37:55 Chronic rhinitis 61670032 J31.0 Snoring 40729346 R06.83 Body mass index 30+ - obesity 637142546 Z68.33 Health Concerns Section Related Observation LastModified by Organization Detai ls LastModified Time None Recorded Concern Status LastModified by Organization Details LastModified Time None Recorded Advance Directives Directive None Recorded Payers Encounter Date Sequence Insurance Name Policy Number Policy Campos Covered Member ID Campos Member ID Guarantor Name 05/02/2024 1 [place] [employer] [facility] [employer] (MEDICAID) Mayda Otto [id number] Mayda Otto Notes Date Note Type Note Provider Name and Address Organization Details Recorded Time 05/02/2024 text/html Experiencing sin us pressure radiating from left cheek to right cheek and up to forehead. Reports trial of multiple anti-histamines tablets and corticosteroid nasal sprays without adequate response. Feels congestion in all temperatures for 20 years. Present both in [place] and in (last 8 years) BRANDI ROJO MD [address] [place] [address], [place], [address], [facility] - [facility] 05/02/2024 15:18:14
--- OUTSIDE RECORDS SUMMARY | 2024-06-19 16:06 | XMS_ITS | Encounter Summary ---
Author Organization [facility] Address [address] [place] [address] Care Team Providers Care Industrial Rehabilitation Consultant Name Role Phone Annabella Sharp Primary Care Provider [phone] Reason for Referral * Care Coordination (Routine) - Closed Specialty Diagnoses / Procedures Referred By Queenie whitfield Referred To Contact Sleep Medicine - Psych/Neurology Diagnoses Snoring Annabella Sharp FNP [address] [place] [phone] Phone: tel: fax: OTHER Referral ID Status Reason Start Date Expiration Date V isits Requested Visits Authorized [id number] Closed Specialty Services Required 05/28/2024 05/28/2025 1 1 Comments Referral for sleep study. Dx; snoring, headache, HTN. obesity Need tajik int. Please eval and treat. fax number for [phone] and location for [facility] [address] [place] [address] Encounter Details Date Type Department Care Team (Late st Contact Info) Description 05/28/2024 Interim Notes [facility] [address] [phone] Annabella Sharp FNP [address] [place] [phone] Snoring (Primary Dx) Social History Tobacco Use Types Packs/Day Years Used Date Smoking Tobacco: Every Day Cigarettes 0.6 35 Smokeless Tobacco: Never Comments:Stil smoking Alcohol Use Standard Drinks/Week Comments [...] Orientation Straight 06/18/2020 11 :51 AM PST COVID-19 Exposure Response Date Recorded In the last 10 days, have yo u been in contact with someone who was confirmed or suspected to have Coronavirus/COVID-19? No / Unsure 05/07/2024 11:38 AM EST documented as of this encounter Progress Notes * TARAH Swain - 05/28/2024 12:09 PM EST Per dre ref; Martha from [facility] is requesting sleep study referral. Please put the fax number for [phone] and location for [facility]. R06.83 Snoring (primary encounter diagnosis) Plan : REFERRAL TO SLEEP DISORDERS CLINIC documented in this encounter Plan of Treatment Scheduled Referrals Name Type Priority Associated Diagnoses Orde r Schedule REFERRAL TO SLEEP DISORDERS CLINIC Referral Routine Snoring Ordered: 05/28/2024 documented as of this encounter Goals Goal Patient Goal Type Associated Problems Recent Progress Patient-Stated? Author Blood Pressure < 130/80 Blood Pressure 130/84(2023 3:04 PM EDT) No Percy Mcclellan, PharmD Hypertension: Decrease sodium intake General On track( 023 11:55 AM PDT) No Percy Mcclellan, Deyanira documented as of this encounter Visit Diagnoses Diagnosis Snoring- Primary Other dyspnea and respiratory abnormality documented in this encounter Additional Health Concerns Assessment Noted Time PHQ-9 Depression Total Score: 0 01/17/20 24 3:04 PM PDT documented as of this encounter Care Teams Industrial Rehabilitation Consultant Relationship Specialty Start Date End Date Annabella Sharp FNP [address] [place] [address] PCP - General Internal Medicine 02/19/20 documented as of this encounter
== END 2024-06-19 15:43 | disposition home or self-care (01) ==
PROVIDERS: PCP Nurse Practitioner Family; Visit Provider Orthopaedic Surgery
DX: M65.342 Trigger finger, left ring finger (principal); M65.332 Trigger finger, left middle finger; M65.331 Trigger finger, right middle finger; M65.341 Trigger finger, right ring finger
CPT/HCPCS: 99214

== ENCOUNTER → 2024-06-19 15:05 | Outpatient (BNVA) | payer MEDICAID, SELFPAY | PROVIDERS: PCP Nurse Practitioner Family; Visit Provider Orthopaedic Surgery | DX: M65.342 Trigger finger, left ring finger (principal); M65.332 Trigger finger, left middle finger; M65.331 Trigger finger, right middle finger; M65.341 Trigger finger, right ring finger; M25.641 Stiffness of right hand, not elsewhere classified; M25.642 Stiffness of left hand, not elsewhere classified | CPT/HCPCS: 99212 ==

== ENCOUNTER 2024-08-26 07:51 | Day surgery (SDC) | payer MEDICAID, SELFPAY ==
[2024-08-26 09:10] VITALS: BP 152/86; PULSE 84; RESP 18; TEMP 36.8; O2SAT 98
[2024-08-26 09:20] VITALS: BMI 34.9
--- NOTE | 2024-08-26 09:40 | MHC.SHP ---
Pre-Procedural Eval Section A - 24 Hr Update-Section A only Date of Service: 08/26/24 The patient is an INPATIENT: No Changes since office visit: No Cold of Flu in the past 2 weeks, No New Medical Problems, No Changes in Medication and No Patient answered all questions The patient has been examined within 24 hours of the surgical procedure. The History & Physical has been completed within 30 days and I have reviewed it.: Yes Section B - Complete if H&P > 30 days Chief Complaint: Trigger finger, left ring finger Allergies: Allergies Allergy/AdvReac Type Severity Reaction Status Date / Time No Known Allergies Allergy Verified 08/26/24 09:14 Plan Diagnosis/Plan: Unchanged I have reviewed the history and physical and performed a pertinent physical examination on my patient. No changes have occurred unless specified. Time Spent With Patient Time: Total time managing care of this patient today ____ minutes.
--- NOTE | 2024-08-26 09:40 | W.PM.OPN ---
Operative Note Operative Note Date of Service: 08/26/24 Narrative: Operative Note Preop diagnosis: 1. Left ring finger Trigger finger Postop diagnosis: Same Procedure: 1. Left ring finger A1 piter release Surgeon: Michaela Dobbins MD Administrative Office Specialist: None Anesthesia: local block using 1% lidocaine with epinephrine Findings: No locking or catching after A1 piter release EBL: Less than 5 mL Tourniquet time: None Specimens: None Complications: None Disposition: Brought to recovery room in stable condition Plan: Follow-up for 10-14 days for wound check and suture removal Indications: The patient is 54 years old, with a left ring finger trigger finger that has been unresponsive to nonoperative management. The risks and benefits of operative treatment including but not limited to risk of damage to blood vessels, nerves, tendons, infection, persistent pain, persistent symptoms, recurrence or possible need for additional surgery were discussed with the patient and the patient wishes to proceed with surgery. Procedure: Once consent was obtained a local block was performed in the preop area using a combination of 1% lidocaine with epinephrine. The patient was then brought back to the operating suite and placed on the operative table in supine position. The left upper extremity was prepped and draped in a standard surgical fashion. Once assured that we had a good block, a 1.5 cm oblique incision was made centered over the A1 piter of the left ring finger . The incision was made through the skin to the subcutaneous tissues using a #15 blade. Careful dissection was made down to the level of the A1 piter using tenotomy scissors, with care being taken to protect the nearby neurovascular structures. A longitudinal incision was made in the A1 piter 1st using a #15 blade, then using tenotomy scissors under direct visualization. The A1 piter was noted to be thickened. Following our A1 ptier release, we no longer saw any locking or catching of the digit with flexion and extension. Once satisfied with our A1 piter release the wound was copiously irrigated with normal saline and hemostasis was obtained with a brief period of local pressure. The skin edges were reapproximated with some 5.0 nylon suture material and a sterile dressing was applied. The patient appears to have tolerated the procedure well and with no complications. All digits were well vascularized at the conclusion of the case.
[2024-08-26 11:32] VITALS: BP 134/82; PULSE 84; RESP 20; O2SAT 99
== END 2024-08-26 11:33 | disposition home or self-care (01) ==
PROVIDERS: Visit Provider Orthopaedic Surgery
PROC: (CPT 26055; principal; 2024-08-26 09:40)
DX: M65.342 Trigger finger, left ring finger (principal); M25.642 Stiffness of left hand, not elsewhere classified
CPT/HCPCS: 26055; J0171; J2003

== ENCOUNTER → 2024-08-26 07:51 | Outpatient (BNV) | payer MEDICAID, SELFPAY | PROVIDERS: Visit Provider Orthopaedic Surgery | DX: M65.342 Trigger finger, left ring finger (principal) | CPT/HCPCS: 26055 ==

== ENCOUNTER 2024-09-10 13:47 | Outpatient (AMB) | payer MEDICAID, SELFPAY ==
--- NOTE | 2024-09-10 13:51 | A.OFFVIS_ITS ---
Vital Signs 09/10/24 13:52 Height 5 ft 5 in Weight 210 lb BMI 34.9 Intake Visit Reasons: PO LT RF trigger 08/26/24 AR Intake Note: Mayda 54 yr old male presents today for his PO left ring finger trigger release from 08/26/[address] Dobbins. States locking has resolved however he now has swelling and difficulty making a close fist. Allergies No Known Allergies Allergy (Verified 09/10/24 13:59) HPI HPI PO LT RF trigger 08/26/24 AR: Details: Mayda is a 53 year old right hand dominant [place] man who returns S/P left ring finger trigger release, DOS: 08/26/24. He is ESL and speaks Colombian comfortably in clinic today. He says he no longer has any ring finger locking, but he is now having difficulty with swelling & limited ROM. He has been working some on his range of motion since last time. 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 Sutures removed and Steri-Strips applied No locking or catching of the ring finger Initially he had difficulty with finger coordination bringing to a full fist, with some stiffness when placing his hand flat on the table. He couldinitially bring his ring fingertip ~1cm from his palm We worked on ROM exercises today in clinic. Before leaving clinic, he could actively flex at both the PIP & DIP joints to make a full closed fist. Sensation is intact Cap refill is brisk Psych Appearance: grossly normal Affect: normal affect Attitude: cooperative Assessment & Plan Assessment & Plan (1) Trigger finger, left ring finger: Code(s): M65.342 - Trigger finger, left ring finger Category: Medical (2) Trigger finger, left middle finger: Code(s): M65.332 - Trigger finger, left middle finger Category: Medical (3) Trigger finger, right middle finger: Code(s): M65.331 - Trigger finger, right middle finger Category: Medical (4) Trigger finger, right ring finger: Code(s): M65.341 - Trigger finger, right ring finger Category: Medical (5) Stiffness of joints of both hands: Code(s): M25.641 - Stiffness of right hand, not elsewhere classified; M25.642 - Stiffness of left hand, not elsewhere classified Category: Medical Plan Assessment & Plan: 1. Left ring finger trigger finger, S/P release DOS: 08/26/24 No improvement with prior injections The patient appears to be doing well post-operatively I educated him about the post-operative course I explained the signs and symptoms of infection, if the patient develops any new or worsening erythema, drainage, pain, or warmth they should contact the clinic or attend the ED. I discussed activity modifications, he is to lift nothing heavier than a cellphone for the next 2 weeks He will perform gentle ROM exercises at home He should avoid any underwater activities for the next 5 days He should gently massage about the incision site to reduce the risk of hypersensitivity He was given a note for work to remain out of work until 09/23/24, he can then return to full duty, without restrictions. He can follow up prn. If he continues to have difficulty with stiffness, he can contact the clinic for a referral to OT hand therapy. 3. Right middle finger trigger finger, S/P injection Date of injection: 02/20/24 Improved with injection, now not bothering him at all. 2. Left middle finger trigger finger Patient said this was not bothering him 4. Right ring finger trigger finger Patient said that this was also not bothering him 5. Bilateral hand stiffness Likely secondary to disuse I educated him about this condition He has made some good improvements in his ROM. His right hand range of motion is normal. I recommend he work on ROM exercises at home He declined any OT hand therapy, this may be due to an insurance concern as he is here on a Green card. Scribed for Michaela Dobbins MD by Brett Jamil, manager of medical, on 09/10/24 at 2:15 PM, EST. Coding Level of Care Code Global (70300) Diagnoses Trigger finger, left ring finger M65.342 Trigger finger, left middle finger M65.332 Trigger finger, right middle finger M65.331 Trigger finger, right ring finger M65.341 Stiffness of joints of both hands M25.641; M25.642
[2024-09-10 13:52] VITALS: BMI 34.9
--- OUTSIDE RECORDS SUMMARY | 2024-09-10 15:57 | XMS_ITS | Clinical Summary ---
Author Organization [facility] Address [address] [place] [address] Phone Care Team Providers Care Open Tenter Operator Name Role Phone AshokAnnabella laureano ARVIN Primary Care Provider [phone] Social History Tobacco Use Types Packs/Day Years Used Date Smoking Tobacco: Never Assessed Sex and Gender Information Value Date Recorded Sex Assigned at Not on file Legal Sex Male 7:16 PM EST Gender Identity Not on file Sexual Orientation Not on file Plan of Treatment Upcoming Encounters Date Type Department Care Team (Late st Contact Info) Description 10/10/2024 12:30 PM EDT Appointment [facility] [address] [place] [phone] Burton Ruiz MD [address] [id number] Health Maintenance Due Date Last Done Comments DTaP,Tdap,and Td Vaccines (1 - Tdap) 1991 Hepatitis B Vaccines (1 of 3 - 19+ 3-dose series) 1991 Cholesterol Screening (Lipid Panel) 04/16/2022 Colorectal Cancer Screening: Colonoscopy 04/16/2022 HIV Screening 04/16/2022 Hepatitis C Screening 04/16/2022 Lung Cancer Screening (Low D ose CT) 04/16/2022 Social Influencers of Health Screening 04/16/2022 Pneumococcal Vaccine: 50+ Ye ars (1 of 1 - PCV) 2022 Zoster Vaccines (1 of 2) 2022 COVID-19 Vaccine (2023-2 5 season) 2024 Influenza Vaccine (Season Ended) 2025 Depression Screening 01/16/2025 01/17/2024 HIB Vaccines Aged [...] patient's age to complete this topic Meningococcal B Vaccine Aged Out No l onger eligible based on patient's age to complete [...] on patient's age to complete this topic Insurance MEDICAID - [place] Care Teams Open Tenter Operator Relationship Specialty Start Date End Date Annabella Sharp NP [address] [place] [id number] PCP - General 01/23/24
--- OUTSIDE RECORDS SUMMARY | 2024-09-10 15:57 | XMS_ITS | Clinical Summary ---
Author Organization [facility] Address [address] [place] [address] Care Team Providers Care Screener And Blender Name Role Phone Annabella Sharp WINE PASTEURIZER Primary Care Provider [phone] Source Comments PLEASE NOTE, if this patient [...] rhinitis, unspecified seasonality, unspecified trigger Place 1 [place] in both nostrils twice a day 16 g 2 04/29/20 22 Active blood pressure test kit-[facility] SMBP Program - 3x/week 1 Kit 07/30/19 23 Active ketoconazole (NIZORAL) 2 % [id number] [place] [phone] 120.00 mL 1 15 Authorized by: ZULEYKA [...] (Maximum 4000 mg/day) 120 Tablet 1 01/17/20 24 Active ibuprofen 800 mg tabletIndications: Chronic pain [...] meal For prediabetes 180 Tablet 1 01/24/20 24 Active levothyroxine 88 mcg tabletIndications: Hypothyroidism, unspecified [...] (BMI) of 36.0 to 36.9 in adult ([facility]) 07/24/2023 Prediabetes 03/04/2022 Erectile dysfunction due to [...] 33.9 in adult 03/04/202203/2024 Essential hypertension 05/07 Immunizations Immunization Administration Dates Next Due Flu, Preservative Free [...] 01/17/2024 3:04 PM EDT Plan of Treatment Upcoming Encounters Date Type Department Care Team (Late st Contact Info) Description 09/17/2024 3:40 PM EDT Office Visit [facility] [address] [place] [address] Doris Alvarez PA-C [address] [place] [phone] Health Maintenance Due Date Last Done Comments Anxiety Screening 1972 CT Colonography 2017 Colonoscopy 2017 Colorectal Cancer [...] Screening Completed 06/18/2020 Imm-Influenza Discontinued 04/23/2021, 02/17/2019 [id number] Discontinued 11/03/2021, 10/13, 10/04/2020 Imm-Hepatitis B Discontinued Imm-Pneumococcal Discontinued Imm-Zoster, Recombinant Discontinued Goals Goal Patient Goal Type Associated Problems Recent Progress Patient-Stated? Author Blood Pressure < 130/80 Blood Pressure 130/84(2023 3:04 PM EDT) No Percy Mcclellan, PharmD Hypertension: Decrease sodium intake General On track( 023 11:55 AM PDT) No Percy Mcclellan PharmD Procedures Procedure Name Priority Date/Time Associated Diagnosis Comments REFERRAL TO SLEEP DISORDERS CLINIC Routine 07/29/2024 3:00 AM EDT Snoring REFERRAL SCANNED DOCUMENT 06/19/2024 3:00 AM EST HGBA1C W/MPG Routine 05/16/2024 12:48 PM EST Prediabetes LIPID PANEL Routine 05/16/2024 12:48 PM EST Mixed hyperlipidemia TSH W/RFLX FREE T4 Routine 03/27/2024 3: 09 PM EST Hypothyroidism, unspecified type LOW DOSE CT LUNG SCREENING Routine 02/13/2024 [...] Recently Relevant to Health Maintenance Results * REFERRAL TO SLEEP DISORDERS CLINIC (07/29/2024 3:00 AM EDT) 07/29/2024 3:00 AM EDT [facility] WINE PASTEURIZER REFERRAL Final Result * REFERRAL SCANNED DOCUMENT (06/19/2024 3:00 AM EST) 06/19/2024 3:00 AM EST [facility] WINE PASTEURIZER SCAN REFERRAL Final Result * (ABNORMAL) HGBA1C W/MPG (05/16/2024 12:48 PM EST) Pathologist [facility] HEMOGLOBIN A1C 6.0(H) <5.7 % of total Hgb [facility] Comment: For someone without known diabetes, a [...] children. MEAN PLASMA GLUCOSE 136 mg/dL (calc) [facility] Blood Blood / Unknown 05/16/2024 1 2:48 PM EST 05/16/2024 12:49 PM EST Narrative [facility] - 05/17/2024 3:33 AM EST FASTING:YES Annabella Sharp [facility] - BLOOD DRAW Edited Result - Final [facility] [address] [place] [address], [facility] [address] [address] * (ABNORMAL) LIPID PANEL (05/16/2024 12:48 PM EST) [facility] CHOLESTEROL, TOTAL 177 <200 mg/dL [facility] HDL CHOLESTEROL 43 > OR = 40 mg/dL [facility] TRIGLYCERIDES 148 <150 mg/dL [facility] LDL-CHOLESTEROL 108(H) 99 mg/dL (calc) [facility] Comment: Reference range: <100 Desirable range <100 mg/dL for primary prevention; ?? <70 mg/dL for patients with CHD or diabetic patients with > or = 2 CHD risk factors. LDL-C is now calculated using the Bianca calculation, which is a validated novel method providing better accuracy than the Friedewald equation in the estimation of LDL-C. Diony EDWARDS et al. PATITO. 2013;310(19): 7733-2113 (http://education.Armut.Footway/faq/TYM329) CHOL/HDLC RATIO 4.1 <5.0 (calc) [facility] NON-HDL CHOLESTEROL 134(H) <130 mg/dL (calc) [facility] Comment: For patients with diabetes plus 1 major ASCVD risk factor, treating to a non-HDL-C goal of <100 mg/dL (LDL-C of <70 mg/dL) is considered a therapeutic option. Blood Blood / Unknown 05/16/2024 1 2:48 PM EST 05/16/2024 12:49 PM EST Narrative [employer] [facility] - 05/17/2024 3:33 AM EST FASTING:YES Annabella Gugeorgi [facility] - BLOOD DRAW Final Result Performing Organization Address [facility] Co de Phone Number [employer] [address] [address], [employer] [address] [address] * TSH W/RFLX FREE T4 (03/27/2024 3:09 PM EST) TSH W/REFLEX TO FT4 0.64 0.40 - 4.50 mIU/L [facility] Blood Blood / Unknown 03/27/2024 3 :09 PM EST 03/27/2024 3:09 PM EST Narrative [employer] [facility] - 03/28/2024 4:25 AM EST FASTING:NO Annabellazuly Sharp [facility] - BLOOD DRAW Final Result Performing Organization Address City/[facility]/ZIP Co de Phone Number [employer] [address] [address], [employer] [address] [address] * LOW DOSE CT LUNG SCREENING (02/13/2024 3:00 AM EDT) 02/13/2024 3:00 AM EDT Annabellazuly Sharp WINE PASTEURIZER IMG CT Edited Result - Final * HEPATITIS C ANTIBODY (06/18/2020 3:43 PM EST) HEPATITIS C VIRUS SCREEN NEGATIVE NEGATIVE [facility] Blood Blood / Unknown 06/18/2020 3 :43 PM EST 06/18/2020 7:49 PM EST [facility] - 06/18/2020 9:[address], [place] [address] Poultry Barn Manager - Sandra Thomason MD PT ID [id number] ORD# [id number] Annabella [facility] - BLOOD DRAW Edited Result - Final Performing Organization Address City/[facility]/ZIP Co de Phone Number [address] [address], [place] [phone] * HIV-1 & HIV-2 ANTIBODIES (06/18/2020 3:43 PM EST) Pathologist [facility] HIV 1 AND 2 ANTIBODY SCREEN NEGATIVE NEGATIVE [facility] Comment: This assay is a 4th generation [...] PM EST 06/18/2020 7:49 PM EST [facility] - 06/18/2020 9:[address], [place] [address] Poultry Barn Manager - Sandra Thomason MD PT ID [id number] ORD# [id number] Annabella [facility] - BLOOD DRAW Edited Result - Final [address] [address], [place] [phone] from Last 3 Months or Most Recently Relevant to Health Maintenance Insurance [id number] Care Teams Screener And Blender Relationship Specialty Start Date End Date Annabella Sharp FNP [address] [place] [id number] PCP - General Internal Medicine 02/19/20
--- OUTSIDE RECORDS SUMMARY | 2024-09-10 15:57 | XMS_ITS | Data Portability ---
Author Organization [place] - [facility], Allergy Address [address] [place] [phone] Care Team Providers Care Ophthalmology Technician Name Role Phone KILEY AMY Referring Provider [phone] Assessment Encounter Date Assessment Date Assessment LastModified by Organization Details LastModified Time 05/02/2024 05/02/2024 53-year-old male with 20-year history of nasal congestion. He notes while he was living in [place] he mostly had congestion when the weather was warm. Over the last 8 [facility] congestion both with [...] Will also arrange for a sleep study. rob Not available 05/02/2024 15:16:52 Plan of Treatment Reminders Order Date Submit Date Provider Last Modified By Organization Details Last Modified Time Details Appointments Estab cosmo frias 30 2024 01:00P M BRANDI DING MD Not available Not available Not available Lab None recor ded. Referral None recor ded. Procedures polys omnog fiona , diagn ostic (PROC ) 2023 024 [email or web address] [facility] & [facility]), [address] [place] [address], [place], [address], 07/12/2024 10:18:25 Surgeries None recor ded. Imaging None recor ded. Medication Orders iprat ropiu marko bromi de 21 mcg (0.03 %) nasal spray 2023 [id number], [address] [place], [place], [phone], 05/02/2024 15:15:44 Patient TargetsNo targets recorded. Patient InstructionsNo instructions recorded. Reason for Referral None Reported. Results Created Date Observation Date Name Description Value Unit Range Abnormal Flag Note LastModifiedBy Organization Detail LastModifiedTime 07/31/1907/29/2024 polys omnog fiona , diagn ostic (PROC ) No observ ation record ed. [id number] [facility]) [address] [place] [address], [address], 07/31/2024 10:43:25 Result Notes None recorded. Problems Name Problem SNOMED Code Status Onset Date Resolution Date Notes Provider Name and Address Organization Details Recorded Time Chronic rhinitis 32491523 Active 024 BRANDI DING MD [address] [address], [place], [phone], [facility] - [facility] 4 15:14:54 Snoring 09834812 Active 024 BRANDI DING MD [address] [address], [facility] [place], [phone], [facility] - [facility] 4 15:15:08 Overweight 568918986 Active 024 BRANDI DING MD [address] [place] [address], [place], [phone], [facility] - [facility] 4 15:17:18 Problem Notes None recorded. Procedures Surgical History None recorded. Imaging Results Imaging Date Name Status LastModified by Organization Details LastModified Time 07/29/2024 polysomnograph y, diagnostic (PROC) completed [id number] [facility]) [address] [facility], [place], [address], 07/31/2024 10:43:25 Procedure Notes None recorded. Medical Equipment None Reported. [...] bromide 21 mcg (0.03 %) nasal spray [place] 2 sprays 3 times a day by [...] Updated DateTime 05/02/2024 165.1 cm 33.3 kg/m2 65422.47 g Joey Villatoro [place] - [facility] 05/02/2024 15:00:12 Social History Question Answer Notes LastModified by Organizat ion Details LastModified Time Tobacco Smoking Status Current Every Day Smoker BRANDI ROJO MD [address] [place] [address], [phone] 05/02/2024 15:13:01 What Is Your Level [...] SNOMED-CT Code Diagnosis ICD10 Code Diagnosis Note [id number] BRANDI SMITH MD [facility] [address] [address] 05/02/2024 14:37:28 05/02/2024 15:37:55 Chronic rhinitis 12528662 J31.0 Snoring 48061608 R06.83 Body mass index 30+ - obesity 292226431 Z68.33 Health Concerns Section Related Observation LastModified by Organization Detai ls LastModified Time None Recorded Concern Status LastModified by Organization Details LastModified Time None Recorded Advance Directives Directive None Recorded Payers Encounter Date Sequence Insurance Name Policy Number Policy Campos Covered Member ID Campos Member ID Guarantor Name 05/02/2024 1 [place] - [employer] (MEDICAID) Mayda Otto [id number] Mayda Otto Notes Date Note Type Note Provider Name and Address Organization Details Recorded Time 05/02/2024 text/html Experiencing sin us pressure radiating from left cheek to right cheek and up to forehead. Reports trial of multiple anti-histamines tablets and corticosteroid nasal sprays without adequate response. Feels congestion in all temperatures for 20 years. Present both in [place] and in [place] (last 8 years) BRANDI ROJO MD [address] [place] [address], [phone], [facility] - [facility] 05/02/2024 15:18:14
== END 2024-09-10 14:22 | disposition home or self-care (01) ==
LOC: HO.HOS 13:48
PROVIDERS: PCP Nurse Practitioner Family; Visit Provider Orthopaedic Surgery
DX: M65.342 Trigger finger, left ring finger (principal); M65.332 Trigger finger, left middle finger; M65.331 Trigger finger, right middle finger; M65.341 Trigger finger, right ring finger; M25.641 Stiffness of right hand, not elsewhere classified; M25.642 Stiffness of left hand, not elsewhere classified
CPT/HCPCS: 99024

== ENCOUNTER → 2024-09-10 13:47 | Outpatient (BNVA) | payer MEDICAID, SELFPAY | PROVIDERS: PCP Nurse Practitioner Family; Visit Provider Orthopaedic Surgery | DX: Z47.89 Encounter for other orthopedic aftercare (principal); M65.342 Trigger finger, left ring finger; M65.332 Trigger finger, left middle finger; M65.331 Trigger finger, right middle finger; M65.341 Trigger finger, right ring finger; M25.641 Stiffness of right hand, not elsewhere classified; M25.642 Stiffness of left hand, not elsewhere classified | CPT/HCPCS: 99212 ==

== ENCOUNTER 2024-10-01 15:40 | Outpatient (AMB) | payer MEDICAID, SELFPAY ==
[2024-10-01 15:41] VITALS: BMI 34.9
--- NOTE | 2024-10-01 15:41 | MHC.OFFVIS ---
Vital Signs 10/01/24 15:41 Height 5 ft 5 in Weight 210 lb BMI 34.9 Intake Visit Reasons: PO LT RF trigger 08/26/24 AR Intake Note: Mayda is a 54 year old male who presents today post-operatively status post left ring trigger finger release, DOS: 08/26/24, by Dr. Dobbins. At his last visit, the patient was educated on the signs and symptoms of infection, instructed not to lift anything heavier than a cellphone for the next 2 weeks, work on gentle ROM exercises at home, to avoid any underwater activities for the next 5 days, and to gently massage around the incision site to reduce the risk of hypersensitivity. Patient was also given a note for work to remain out of work until 09/23/24 and then return to full duty, without restrictions. Patient declined OT at that time. He was told to follow up PRN. Allergies No Known Allergies Allergy (Verified 09/10/24 13:59) HPI HPI PO LT RF trigger 08/26/24 AR: Details: Mayda is a 54 year old male who presents today post-operatively status post left ring trigger finger release, DOS: 08/26/24, by Dr. Dobbins. At his last visit, the patient was educated on the signs and symptoms of infection, instructed not to lift anything heavier than a cellphone for the next 2 weeks, work on gentle ROM exercises at home, to avoid any underwater activities for the next 5 days, and to gently massage around the incision site to reduce the risk of hypersensitivity. Patient was also given a note for work to remain out of work until 09/23/24 and then return to full duty, without restrictions. Patient declined OT at that time. He was told to follow up PRN. At this time, the patient reports that he is experiencing significant hypersensitivity around the incision site from his left ring finger trigger release, but again is adamant that he does not require any occupational therapy. The patient states he would like a work note for light duty for the next 2 weeks to state that he should be working primarily with his right hand until he is able to get his hypersensitivity under control. Denies any further locking or catching. No other acute complaints or concerns at this time. 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 Sutures removed and Steri-Strips applied No locking or catching of the ring finger Initially he had difficulty with finger coordination bringing to a full fist, with some stiffness when placing his hand flat on the table. He couldinitially bring his ring fingertip ~1cm from his palm We worked on ROM exercises today in clinic. Before leaving clinic, he could actively flex at both the PIP & DIP joints to make a full closed fist. Sensation is intact Cap refill is brisk Psych Appearance: grossly normal Affect: normal affect Attitude: cooperative Assessment & Plan Assessment & Plan (1) Trigger finger, left ring finger: Code(s): M65.342 - Trigger finger, left ring finger Category: Medical (2) Trigger finger, left middle finger: Code(s): M65.332 - Trigger finger, left middle finger Category: Medical (3) Trigger finger, right middle finger: Code(s): M65.331 - Trigger finger, right middle finger Category: Medical (4) Trigger finger, right ring finger: Code(s): M65.341 - Trigger finger, right ring finger Category: Medical (5) Stiffness of joints of both hands: Code(s): M25.641 - Stiffness of right hand, not elsewhere classified; M25.642 - Stiffness of left hand, not elsewhere classified Category: Medical Plan Assessment & Plan: 1. Left ring finger trigger finger, S/P release DOS: 08/26/24 No improvement with prior injections The patient appears to be doing well post-operatively I educated him about the post-operative course I explained the signs and symptoms of infection, if the patient develops any new or worsening erythema, drainage, pain, or warmth they should contact the clinic or attend the ED. At this time, patient is given a work note to work primarily with the right hand for a further 2 weeks, but is advised we will not be giving him any restrictions beyond this Patient is recommended a course of occupational therapy strongly for desensitization and range of motion, but once again declines, stating ?I do not need any therapy? Follow-up as needed 3. Right middle finger trigger finger, S/P injection Date of injection: 02/20/24 Improved with injection, now not bothering him at all. 2. Left middle finger trigger finger Patient said this was not bothering him 4. Right ring finger trigger finger Patient said that this was also not bothering him 5. Bilateral hand stiffness Likely secondary to disuse I educated him about this condition He has made some good improvements in his ROM. His right hand range of motion is normal. I recommend he work on ROM exercises at home He declined any OT hand therapy, this may be due to an insurance concern as he is here on a Green card. Scribed for Michaela Dobbins MD by Brett Jamil, medical laboratory technologist, on 09/10/24 at 2:15 PM, EST. Coding Level of Care Code Global (53475) Diagnoses Trigger finger, left ring finger M65.342 Trigger finger, left middle finger M65.332 Trigger finger, right middle finger M65.331 Trigger finger, right ring finger M65.341 Stiffness of joints of both hands M25.641; M25.642
--- OUTSIDE RECORDS SUMMARY | 2024-10-01 16:37 | XMS_ITS | Clinical Summary ---
Author Organization [facility] Address [address] [place] [address] Care Team Providers Care Director Of Resource Development Name Role Phone Annabella Sharp TARAH Primary Care Provider [phone] Source Comments PLEASE NOTE, if this patient is a minor, it may be UNLAWFUL to discuss sensitive information that is contained in these records (such as FAMILY PLANNING, MENTAL HEALTH or SUBSTANCE ABUSE) with the minor patient's parent or other person without the patient's specific authorization.[facility] Allergies No known active allergies Medications diclofenac sodium (VOLTAREN) 1 % gelIndications:Ach illes tendinitis of both lower extremities Apply 2 g topically nightly at bedtime 100 g 11 09/18/19 25 Active atorvastatin (LIPITOR) 40 mg tabletIndications: Prediabetes,Mixed hyperlipidemia Take 1 Tablet by mouth nightly at bedtime 90 Tablet 3 09/18/19 25 Active levothyroxine 88 mcg tabletIndications: Acquired hypothyroidism Take 1 Tablet by mouth every morning before breakfast For thyroid 90 Tablet 3 09/18/19 25 Active metFORMIN (GLUCOPHAGE) 500 mg tabletIndications: Prediabetes Take 1 Tablet by mouth 2 (two) times daily with a meal For prediabetes 180 Tablet 3 09/18/19 25 Active sildenafiL (VIAGRA) 50 mg tablet Take 1 Tablet by mouth once daily as needed for erectile dysfunction 9 Tablet 3 03/04/20 22 025 Discontin ued(Outda zari-Remov ed from Med List (E-Cancel Not Sent)) fluticasone (FLONASE) 50 mcg/actuation nasal sprayIndications:A llergic rhinitis, unspecified seasonality, unspecified trigger Place 1 [place] in both nostrils twice a day 16 g 2 04/29/20 22 025 Discontin ued(Outda zari-Remov ed from Med List (E-Cancel Not Sent)) blood pressure test kit-large SMBP Program - 3x/week 1 Kit 07/30/19 025 Discontin ued(Outda zari-Remov ed from Med List (E-Cancel Not Sent)) ketoconazole (NIZORAL) 2 % [id number] - [place], [place] [phone] 120.00 mL 1 15 Authorized by: ZULEYKA AGGARWAL 10/17/19 025 Discontin ued(Outda zari-Remov ed from Med List (E-Cancel Not Sent)) fexofenadine (ARI) 180 mg tabletIndications: Non-seasonal allergic rhinitis, unspecified trigger Take 1 Tablet by mouth once daily 30 Tablet 2 09/01/19 24 025 Discontin ued(Outda zari-Remov ed from Med List (E-Cancel Not Sent)) triamcinolone (NASACORT) 55 mcg nasal inhalerIndications :Non-seasonal allergic rhinitis, unspecified trigger Place 2 Sprays into the nostril(s) once daily 16 g 2 09/01/19 24 025 Discontin ued(Outda zari-Remov ed from Med List (E-Cancel Not Sent)) acetaminophen (TYLENOL) 500 mg tabletIndications: Chronic pain of both ankles Take 2 Tablets by mouth every 8 (eight) hours as needed for pain (Maximum 4000 mg/day) 120 Tablet 1 01/17/20 24 025 Discontin ued(Outda zari-Remov ed from Med List (E-Cancel Not Sent)) ibuprofen 800 mg tabletIndications: Chronic pain of both ankles Take 1 Tablet by mouth 3 (three) times daily as needed for pain 60 Tablet 1 01/17/20 24 025 Discontin ued(Outda zari-Remov ed from Med List (E-Cancel Not Sent)) atorvastatin (LIPITOR) 80 mg tabletIndications: Mixed hyperlipidemia Take 1 Tablet by mouth nightly at bedtime For cholesterol 90 Tablet 1 01/24/20 24 025 Discontin ued(Thera py completed /Not needed) metFORMIN (GLUCOPHAGE) 500 mg tabletIndications: Prediabetes Take 1 Tablet by mouth 2 (two) times daily with a meal For prediabetes 180 Tablet 1 01/24/20 025 Discontin ued(Reord er (E-Cancel Not Sent)) levothyroxine 88 mcg tabletIndications: Hypothyroidism, unspecified type Take 1 Tablet by mouth every morning before breakfast For thyroid 90 Tablet 1 01/31/20 025 Discontin ued(Reord er (E-Cancel Not Sent)) Active Problems Problem Noted Date Diagnosed Date Tobacco use 09/17/2024 Chronic rhinitis 05/07/2024 Overview (05/07/2024): Saw ENT on 04/2024. Class 2 severe obesity due t o excess calories with serious comorbidity and body mass index (BMI) of 36.0 to 36.9 in adult ([facility]) 07/24/2023 Prediabetes 03/04/2022 Erectile dysfunction due to arterial insufficien cy 03/04/2022 Abdominal bloating 11/11/2020 Other headache syndrome 08/03/2020 Snoring 08/03/2020 Slow transit constipation 08/03/2020 Trigger middle finger of right hand 08/03/2020 Mixed hyperlipidemia 08/03/2020 Acquired hypothyroidism 06/26/2020 Hepatitis A immune Overview (06/26/2020): per serology Resolved Problems Problem Noted Date Diagnosed Date Resolved Date Class 1 obesity due to exces s calories without serious comorbidity with body mass index (BMI) of 33.0 to 33.9 in adult 03/04/202203/2024 Essential hypertension 05/07 Encounters Date Type Department Care Team Description 09/17/2024 3:40 PM EDT Office Visit [address] [address] Doris Alvarez PA-C Class 2 severe obesity due to excess calories with serious comorbidity and body mass index (BMI) of 36.0 to 36.9 in adult ([facility]) (Primary Dx); Prediabetes; Tobacco use; Subclinical hypothyroidism; Achilles tendinitis of both lower extremities; Mild vitamin D deficiency; Lower urinary tract symptoms (LUTS); Prostate cancer screening; Acquired hypothyroidism; Mixed hyperlipidemia from Last 3 Months Immunizations Immunization Administration Dates Next Due Flu, [...] Tobacco: Never Tobacco Cessation:Ready to Q uit: No; Counseling Given: Yes Comments:Stil smoking Alcohol Use [...] Sign Reading Time Taken Comments Blood Pressure 138/88 09/17/2024 2:30 PM EDT Pulse 86 09/17/2024 2:30 PM EDT Temperature 36.9 ??C (98.5 ??F) 09/17/2024 2:30 PM ED T Respiratory Rate 16 01/17/2024 3:04 PM EDT Oxygen Saturation 98% 09/17/2024 2:30 PM EDT Inhaled Oxygen Concentration - - Weight 102.5 kg (226 lb) 09/17/2024 2:30 PM EDT Height 165.1 cm (5' 5 ) 09/17/2024 2:30 PM EDT Body Mass Index 37.61 09/17/2024 2:30 PM EDT Plan of Treatment Health Maintenance Due Date Last Done Comments Anxiety Screening 1972 CT Colonography 2017 Colonoscopy 2017 Colorectal Cancer Screening 2017 FIT/gFOBT 2017 Fecal DNA 2017 Flexible Sigmoidoscopy 2017 Annual Wellness (Adult): Indicated (All Coverage) 01/16/2025 01/17/2024, 11/03/2021, 04/23/2021 Lung Cancer Screening 02/12/2025 02/13/2024, 024 TSH Monitoring 03/27/2025 03/27/2024, 09/0 08/2023, 12/02/2022, Additional history exists Diabetes Screening 05/16/2025 05/16/2024, 0 01/17/2024, 01/17/2024, Additional history exists Lipid Screening 05/16/2025 05/16/2024, 09/0 08/2023, 07/24/2023, Additional history exists Hypertension Screening (#1) 09/17/2025 Tobacco Cessation Counseling (#1) 09/17/2025 023 Imm-DTaP/Tdap/Td (2 - Td or Tdap) 04/23/2031 021 HIV Screening Completed 06/18/2020 Hepatitis C Screening Completed 06/18/2020 Imm-Influenza Discontinued 04/23/2021, 02/17/2019 [id number] Discontinued 11/03/2021, 10/13, 10/04/2020 Alcohol and Drug Screen Completed 09/18/19, 01/17/2024, 07/24/2023, Additional history exists Depression Annual Screen Completed 09/17/2024 Imm-Hepatitis B Discontinued Imm-Pneumococcal Discontinued Imm-Zoster, Recombinant Discontinued Goals Goal Patient Goal Type Associated Problems Recent Progress Patient-Stated? Author Blood Pressure < 130/80 Blood Pressure 138/88(2024 2:30 PM EDT) No Percy Mcclellan, PharmD Hypertension: Decrease sodium intake General On track( 023 11:55 AM PDT) No Percy Mcclellan, Deyanira Procedures Procedure Name Priority Date/Time Associated Diagnosis Comments REFERRAL SCANNED DOCUMENT 09/10/2024 3:00 AM EDT REFERRAL TO SLEEP DISORDERS CLINIC Routine 07/29/2024 3:00 AM EDT Snoring HGBA1C W/MPG Routine 05/16/2024 12:48 PM EST [...] Relevant to Health Maintenance Results * REFERRAL SCANNED DOCUMENT (09/10/2024 3:00 AM EDT) 09/10/2024 3:00 AM EDT [facility] SCAN REFERRAL Final Result * REFERRAL TO SLEEP DISORDERS CLINIC (07/29/2024 3:00 AM EDT) 07/29/2024 3:00 AM EDT [facility] SPECIALIST REFERRAL Final Result * (ABNORMAL) HGBA1C W/MPG (05/16/2024 12:48 PM EST) HEMOGLOBIN A1C 6.0(H) <5.7 % of total Hgb [employer] Comment: For someone without known diabetes, a [...] children. MEAN PLASMA GLUCOSE 136 mg/dL (calc) [employer] Blood Blood / Unknown 05/16/2024 1 2:48 PM EST 05/16/2024 12:49 PM EST Narrative [employer] [facility] - 05/17/2024 3:33 AM EST FASTING:YES Annabella Sharp [facility] - BLOOD DRAW Edited Result - Final [employer] [facility] [address] [place] [address], [employer] [address] [place] [phone] * (ABNORMAL) LIPID PANEL (05/16/2024 12:48 PM EST) Pathologist [facility] CHOLESTEROL, TOTAL 177 <200 mg/dL [employer] HDL CHOLESTEROL 43 > OR = 40 mg/dL [employer] TRIGLYCERIDES 148 <150 mg/dL [employer] LDL-CHOLESTEROL 108(H) 99 mg/dL (calc) [employer] Comment: Reference range: <100 Desirable range <100 mg/dL for primary prevention; ?? <70 mg/dL for patients with CHD or diabetic patients with > or = 2 CHD risk factors. LDL-C is now calculated using the Bianca calculation, which is a validated novel method providing better accuracy than the Friedewald equation in the estimation of LDL-C. Diony EDWARDS et al. PATITO. 2013;310(19): 0517-6287 (http://education.[employer]/faq/IFV536) CHOL/HDLC RATIO 4.1 <5.0 (calc) [employer] NON-HDL CHOLESTEROL 134(H) <130 mg/dL (calc) [facility] Comment: For patients with diabetes plus 1 major ASCVD risk factor, treating to a non-HDL-C goal of <100 mg/dL (LDL-C of <70 mg/dL) is considered a therapeutic option. Blood Blood / Unknown 05/16/2024 1 2:48 PM EST 05/16/2024 12:49 PM EST Narrative [employer] [facility] - 05/17/2024 3:33 AM EST FASTING:YES Annabellazuly Sharp [facility] - BLOOD DRAW Final Result Performing Organization Address [facility]/ZIP Co de Phone Number [facility] [address] [address], [facility] [address] [address] * TSH W/RFLX FREE T4 (03/27/2024 3:09 PM EST) TSH W/REFLEX TO FT4 0.64 0.40 - 4.50 mIU/L [facility] Blood Blood / Unknown 03/27/2024 3 :09 PM EST 03/27/2024 3:09 PM EST Narrative [facility] - 03/28/2024 4:25 AM EST FASTING:NO Annabellazuly Sharp [facility] - BLOOD DRAW Final Result Performing Organization Address City/[facility]/ZIP Co de Phone Number [facility] [address] [address], [facility] [address] [address] * Lung Cancer Screening Referral, Low Dose Chest CT Order (02/13/2024 3:00 AM EDT) 02/13/2024 3:00 AM EDT Annabella Sharp [facility] IMG CT Edited Result - Final * HEPATITIS C ANTIBODY (06/18/2020 3:43 PM EST) HEPATITIS C VIRUS SCREEN NEGATIVE NEGATIVE [facility] Blood Blood / Unknown 06/18/2020 3 :43 PM EST 06/18/2020 7:49 PM EST [facility] - 06/18/2020 9:45 PM EST [employer], [place] [address] Precision Lathe Operator - Sandra Thomason MD PT ID [id number] ORD# [id number] Annabella [facility] - BLOOD [place]RAW [place] [address], [place] [phone] * HIV-1 & HIV-2 ANTIBODIES (06/18/2020 3:43 PM EST) Pathologist [facility] HIV 1 AND 2 ANTIBODY SCREEN NEGATIVE NEGATIVE [facility] Comment: This assay is a 4th generation [...] PM EST 06/18/2020 7:49 PM EST [facility] - 06/18/2020 9:46 PM EST [employer], [place] [address] Precision Lathe Operator - Sandra Thomason MD PT ID [id number] ORD# [id number] Annabella [facility] - BLOOD DRAW Edited Result - Final [address] [address], [place] [phone] from Last 3 Months or Most Recently Relevant to Health Maintenance Insurance [id number] [facility] COOPERATIVE ACO Care Teams Director Of Resource Development Relationship Specialty Start Date End Date Annabella Sharp FNP [address] [place] [id number] PCP - General Internal Medicine 02/19/20
--- OUTSIDE RECORDS SUMMARY | 2024-10-01 16:38 | XMS_ITS | Clinical Summary ---
Author Organization [facility] Address [address] [place] [address] Phone Care Team Providers Care Manager Interventional Name Role Phone Annabella Sharp ARVIN Primary Care Provider [phone] Medications polyethylene glycol (Golytely) 236-22.74-6.74 -5.86 gram solution Take 4L by mouth once for one dose. May substitue any PEG. Starting at 6PM the night before your procedure drink 1 8oz glasses at your own pace until you complete half of the gallon. Finish 2nd half of the gallon 5 hours before your procedure. 4000 mL 5 Active bisacodyL (DULCOLAX) 5 mg EC tablet Take 2 tablets by mouth right before beginning bowel prep. See instructions provided by the office 2 tablet 5 Active Social History Tobacco Use Types Packs/Day Years Used Date Smoking Tobacco: Never Assessed Sex and Gender Information Value Date Recorded Sex Assigned at Not on file Legal Sex Male 7:16 PM EST Gender Identity Not on file Sexual Orientation Not on file Plan of Treatment Upcoming Encounters Date Type Department Care Team (Late st Contact Info) Description 10/10/2024 12:30 PM EDT Hospital Encounter [facility] Endoscopy [address] [place] [address] Burton Ruiz MD [address] [address] Health Maintenance Due Date Last Done Comments [...] Vaccines (1 of 2) 2022 COVID-19 Vaccine (1 - 2023-2 5 season) 2024 Influenza Vaccine (Season Ended) 2025 Depression Screening 09/17/2025 09/17/2024 HIB Vaccines Aged Out No longer eligi [...] to complete this topic Insurance [place] Care Teams Manager Interventional Relationship Specialty Start Date End Date Annabella Sharp NP [facility] [place] [address] PCP - General 01/23/24
--- OUTSIDE RECORDS SUMMARY | 2024-10-01 16:38 | XMS_ITS | Data Portability ---
Author Organization [place] - [facility], Allergy Address [address] [place] [phone] Care Team Providers Care Printing Sign Machine Operator Name Role Phone KILEY AMY Referring Provider Assessment Encounter Date Assessment Date Assessment LastModified by Organization Details LastModified Time 05/02/2024 05/02/2024 53-year-old male with 20-year history of nasal congestion. He notes while he was living in [place] he mostly had congestion when the weather was warm. Over the last 8 years while living in the [facility] he has noted congestion both with [...] , diagn ostic (PROC ) 2023 024 [email or web address] [facility] & [facility]), [address] [place] [address], [place], [address], 07/12/2024 10:18:25 Surgeries None recor ded. Imaging None recor ded. Medication Orders iprat ropiu marko bromi de 21 mcg (0.03 %) nasal spray 2023 [id number], [address] [place], [place], [id number], 05/02/2024 15:15:44 Patient TargetsNo targets recorded. Patient InstructionsNo instructions recorded. Reason for Referral None Reported. Results Created Date Observation Date Name Description Value Unit Range Abnormal Flag Note LastModifiedBy Organization Detail LastModifiedTime 07/31/1907/29/2024 polys omnog fiona , diagn ostic (PROC ) No observ ation record ed. [email or web address] [facility]) [address] [place] [address], [address], 07/31/2024 10:43:25 Result Notes None recorded. Problems Name Problem SNOMED Code Status Onset Date Resolution Date Notes Provider Name and Address Organization Details Recorded Time Chronic rhinitis 68476908 Active 024 BRANDI DING MD [address] [address], [place], [phone], [facility] - [facility] 4 15:14:54 Snoring 07392037 Active 024 BRANDI DING MD [address] [address], [place], [phone], [facility] - [facility] 4 15:15:08 Overweight 279070634 Active 024 BRANDI DING MD [address] [place] [address], [place], [phone], [facility] - [facility] 4 15:17:18 Problem Notes None recorded. Procedures Surgical History None recorded. Imaging Results Imaging Date Name Status LastModified by Organization Details LastModified Time 07/29/2024 polysomnograph y, diagnostic (PROC) completed [email or web address] [facility]) [address] [facility], [place], [address], 07/31/2024 10:43:25 Procedure Notes None recorded. Medical [...] bromide 21 mcg (0.03 %) nasal spray [place] 2 sprays 3 times a day by [...] Updated DateTime 05/02/2024 165.1 cm 33.3 kg/m2 48156.47 g Joey Villatoro [place] - [facility] 05/02/2024 15:00:12 Social History Question Answer Notes LastModified by [employer] Details LastModified Time Tobacco Smoking Status Current Every Day Smoker BRANDI ROJO MD [address] [place] [address], [phone] 05/02/2024 15:13:01 How Much Tobacco Do You Smoke? 0.5 PPD Information not available 05/02/2024 Sex: Unknown Functional Status Question Answer Note LastModified by [employer] Details LastModified Time Do you use any illicit or recreational drugs? No Information not available 05/02/2024 Do you or have you ever used any other forms of tobacco or nicotine? Yes Information not available 05/02/2024 What is your level of alcohol consumption? None Information not available 05/02/2024 Mental Status None recorded. Family History Nothing Reported. Medical History Condition Response Hypertension Y Past Encounters Encounter ID Performer Location Encounter Start Date Encounter Closed Date Diagnosis/Indication Diagnosis SNOMED-CT Code Diagnosis ICD10 Code Diagnosis Note [id number] BRANDI SMITH MD [facility] [address] [address] 05/02/2024 14:37:28 05/02/2024 15:37:55 Chronic rhinitis 88880220 J31.0 Snoring 15056849 R06.83 Body mass index 30+ - obesity 745288757 Z68.33 Health Concerns Section Related Observation LastModified by Organization Detai ls LastModified Time None Recorded Concern Status LastModified by Organization Details LastModified Time None Recorded Advance Directives Directive None Recorded Payers Insurance Date Sequence Insurance Name Policy Number Policy Campos Covered Member ID Campos Member ID Guarantor Name 07/26/2024 1 [place] - [facility]ARE [facility]OPERATIVE (MEDICAID) Mayda Otto [id number] Myada Otto Notes Date Note Type Note Provider Name and Address Organization Details Recorded Time 05/02/2024 text/html Experiencing sin us pressure radiating from left cheek to right cheek and up to forehead. Reports trial of multiple anti-histamines tablets and corticosteroid nasal sprays without adequate response. Feels congestion in all temperatures for 20 years. Present both in [place] and in [place] (last 8 years) BRANDI ROJO MD [address] [place] [address], [phone], [facility] - [facility] 05/02/2024 15:18:14
== END 2024-10-01 15:56 | disposition home or self-care (01) ==
LOC: HO.HOS 15:41
PROVIDERS: PCP Nurse Practitioner Family
DX: M65.342 Trigger finger, left ring finger (principal); M65.332 Trigger finger, left middle finger; M65.331 Trigger finger, right middle finger; M65.341 Trigger finger, right ring finger; M25.641 Stiffness of right hand, not elsewhere classified; M25.642 Stiffness of left hand, not elsewhere classified
CPT/HCPCS: 99024

== ENCOUNTER → 2024-10-01 15:40 | Outpatient (BNVA) | payer MEDICAID, SELFPAY | PROVIDERS: PCP Nurse Practitioner Family | DX: M65.342 Trigger finger, left ring finger (principal); M65.332 Trigger finger, left middle finger; M65.331 Trigger finger, right middle finger; M65.341 Trigger finger, right ring finger; M25.641 Stiffness of right hand, not elsewhere classified; M25.642 Stiffness of left hand, not elsewhere classified | CPT/HCPCS: 99212 ==

== ENCOUNTER 2024-11-01 15:05 | Outpatient (AMB) | payer MEDICAID, SELFPAY ==
--- NOTE | 2024-11-01 15:07 | MHC.OFFVIS ---
Vital Signs 11/01/24 15:11 Height 5 ft 5 in Weight 21 lb BMI 3.5 Intake Visit Reasons: Newprob-Left Achilles tendonitis- Intake Note: Mayda is a 54 year old male who presents today for a new problem visit for evaluation of possible left Achilles tendonitis. Patient reports he is here for both Achilles. He expresses he has daily pain with ambulation, working, and even after resting he still continues having these symptoms. This has been ongoing for roughly 3 months. Denies numbness and tingling. Denies injury or recent trauma. Avionic Technician Required: Yes Avionic Technician Language: Hungarian Avionic Technician Services: Avionic Technician Present (iPad) Avionic Technician Name: [id number] Allergies No Known Allergies Allergy (Verified 11/01/24 15:11) HPI HPI Newprob-Left Achilles tendonitis-: Details: Mayda is a 54 year old male who presents today for a new problem visit for evaluation of possible left Achilles tendonitis. Patient reports he is here for both Achilles. He expresses he has daily pain with ambulation, working, and even after resting he still continues having these symptoms. This has been ongoing for roughly 3 months. Denies any previous treatment, and reports that [id number] pain medication has been largely ineffective. Denies numbness and tingling. Denies injury or recent trauma. 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 Review of Systems Const All systems reviewed & are unremarkable except as noted in HPI and below Physical Exam Vital Signs: BMI result Body Mass Index 3.5 Extrem Other: Patient's bilateral heels demonstrate an area of swelling deformity on bilateral posterior aspect at the level of the Achilles insertion No erythema, ecchymosis, edema noted No lacerations, abrasions, open areas No evidence of infection Patient reports significant tenderness to palpation of the bilateral Achilles insertions No tenderness to palpation of the medial lateral malleoli Patient is able to plantar flex and dorsiflex the bilateral feet fully and without difficulty Distal sensation intact Capillary refill brisk Results Reviewed Results Reviewed: X-rays obtained in the office today and independently reviewed by me, Flaco Patino PA-C, demonstrate calcifications at the posterior aspect of bilateral heels concerning for early Marietta's deformity versus calcific tendinitis of bilateral Achilles tendons. 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 Patient is educated about this condition Patient is educated about the typical treatment course At this time, a referral was placed to foot and ankle surgeon for discussion of further treatment options for his condition Patient is also offered a referral to physical therapy at this time, but declines, stating that he does not feel physical therapy will help him Patient is educated on conservative pain management measures Patient is educated that we can not prescribe anything stronger than Tylenol or ibuprofen for his pain Patient states understanding of this Follow-up with foot and ankle surgery Orders: Orders XR Foot Ryan 3V Today M79.671 - Pain in right foot, M79.672 - Pain in left foot Referrals Orthopedics Referral M79.671 - Pain in right foot, M79.672 - Pain in left foot, 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
--- OUTSIDE RECORDS SUMMARY | 2024-11-01 15:07 | XMS_ITS | Clinical Summary ---
Author Organization [facility] Address [address] [place] [address] Care Team Providers Care Keno Manager Name Role Phone Annabella Sharp SYSTEMS SOFTWARE DESIGNER Primary Care Provider [phone] Source Comments PLEASE NOTE, if this patient [...] prediabetes 180 Tablet 3 09/18/19 25 Active Active Problems Problem Noted Date Diagnosed Date Tobacco use 09/17/2024 Chronic rhinitis 05/07/2024 Overview (05/07/2024): Saw ENT on 04/2024. Class 2 severe obesity due t o excess calories with serious comorbidity and body mass index (BMI) of 36.0 to 36.9 in adult ([facility]) 07/24/2023 Prediabetes 03/04/2022 Erectile dysfunction due to [...] Description 09/17/2024 3:40 PM EDT Office Visit [address] [address] Doris Alvarez PA-C Class 2 severe obesity due to excess calories with serious comorbidity and body mass index (BMI) of 36.0 to 36.9 in adult ([facility]) (Primary Dx); Prediabetes; Tobacco use; Subclinical hypothyroidism; [...] 86 09/17/2024 2:30 PM EDT Temperature 36.9 C (98.5 F) 09/17/2024 2:30 PM EDT Respiratory Rate 16 01/17/2024 3:04 PM EDT Oxygen Saturation 98% 09/17/2024 2:30 PM EDT Inhaled Oxygen Concentration - - Weight 102.5 kg (226 lb) 09/17/2024 2:30 PM EDT Height 165.1 cm (5' 5 ) 09/17/2024 2:30 PM EDT Body Mass Index 37.61 09/17/2024 2:30 PM EDT Plan of Treatment Health Maintenance Due Date Last Done Comments Anxiety Screening 1972 CT Colonography 2017 FIT/gFOBT 2017 Fecal DNA 2017 Flexible Sigmoidoscopy 2017 Annual Wellness (Adult): Indicated (All Coverage) 01/16/2025 01/17/2024, 11/03/2021, 04/23/2021 Lung Cancer Screening 02/12/2025 02/13/2024, 024 TSH Monitoring 03/27/2025 03/27/2024, 09/0 08/2023, 12/02/2022, Additional history exists Diabetes Screening 05/16/2025 05/16/2024, 0 01/17/2024, 01/17/2024, Additional history exists Lipid Screening 05/16/2025 05/16/2024, 0908/2023, 07/24/2023, Additional history exists Hypertension Screening (#1) 09/17/2025 Tobacco Cessation Counseling (#1) 09/17/2025 023 Imm-DTaP/Tdap/Td (2 - Td or Tdap) 04/23/2031 021 Colonoscopy 10/10/2034 10/10/2024 Colorectal Cancer Screening 10/10/2034 HIV Screening Completed 06/18/2020 Hepatitis C Screening Completed 06/18/2020 Imm-Influenza Discontinued 04/23/2021, 02/17/2019 [id number] Discontinued 11/03/2021, 10/13, 10/04/2020 Alcohol and Drug [...] Procedure Name Priority Date/Time Associated Diagnosis Comments HISTORIC COLONOSCOPY 10/10/2024 3:00 AM EDT REFERRAL TO ORTHOPEDICS Routine 10/01/2024 3:00 AM EDT Achilles tendinitis of both lower extremities REFERRAL SCANNED DOCUMENT 09/10/2024 3:00 AM EDT HGBA1C W/MPG Routine 05/16/2024 12:48 PM EST [...] Recently Relevant to Health Maintenance Results * HISTORIC COLONOSCOPY (10/10/2024 3:00 AM EDT) 10/10/2024 3:00 AM EDT Annabellazuly Sharp SYSTEMS SOFTWARE DESIGNER PROCEDURES Final Result * REFERRAL TO ORTHOPEDICS (10/01/2024 3:00 AM EDT) 10/01/2024 3:00 AM EDT Doris Alvarez PA-C REFERRAL Final Result * REFERRAL SCANNED DOCUMENT (09/10/2024 3:00 AM EDT) 09/10/2024 3:00 AM EDT Annabella Sharp SYSTEMS SOFTWARE DESIGNER SCAN REFERRAL Final Result * (ABNORMAL) HGBA1C W/MPG (05/16/2024 12:48 PM EST) HEMOGLOBIN A1C 6.0(H) <5.7 % of total Hgb [facility] Comment: For someone without known diabetes, a [...] children. MEAN PLASMA GLUCOSE 136 mg/dL (calc) [facility] Blood Blood / Unknown 05/16/2024 1 2:48 PM EST 05/16/2024 12:49 PM EST Narrative [facility] - 05/17/2024 3:33 AM EST FASTING:YES us Annabella Sharp SYSTEMS SOFTWARE DESIGNER LAB - BLOOD DRAW Edited Result - Final [facility] [address] [address], [facility] [address] [place] [address] * (ABNORMAL) LIPID PANEL (05/16/2024 12:48 PM EST) CHOLESTEROL, TOTAL 177 <200 mg/dL [facility] HDL CHOLESTEROL 43 > OR = 40 mg/dL [facility] TRIGLYCERIDES 148 <150 mg/dL [facility] LDL-CHOLESTEROL 108(H) 99 mg/dL (calc) [facility] Comment: Reference range: <100 Desirable range <100 mg/dL for primary prevention; <70 mg/dL for patients with CHD or diabetic patients with > or = 2 CHD risk factors. LDL-C is now calculated using the Diony-Pool calculation, which is a validated novel method providing better accuracy than the Friedewald equation in the estimation of LDL-C. Diony EDWARDS et al. PATITO. 2013;310(19): 3720-5461 (http://education.Meituan.com/faq/PHI506) CHOL/HDLC RATIO 4.1 <5.0 (calc) [facility] NON-HDL CHOLESTEROL 134(H) <130 mg/dL (calc) [facility] Comment: For patients with diabetes plus 1 major ASCVD risk factor, treating to a non-HDL-C goal of <100 mg/dL (LDL-C of <70 mg/dL) is considered a therapeutic option. Blood Blood / Unknown 05/16/2024 1 2:48 PM EST 05/16/2024 12:49 PM EST Narrative [facility] - 05/17/2024 3:33 AM EST FASTING:YES Annabella Sharp [facility] - BLOOD DRAW Final Result Performing Organization Address City/[facility]/ZIP Co de Phone Number [facility] [address] [address], [facility] [address] [address] * TSH W/RFLX FREE T4 (03/27/2024 3:09 PM EST) TSH W/REFLEX TO FT4 0.64 0.40 - 4.50 mIU/L [facility] Blood Blood / Unknown 03/27/2024 3 :09 PM EST 03/27/2024 3:09 PM EST Narrative [facility] - 03/28/2024 4:25 AM EST FASTING:NO Annabella Sharp [facility] - BLOOD DRAW Final Result Performing Organization Address City/[facility]/ZIP Co de Phone Number [facility] [address] [address], [facility] [address] [address] * Lung Cancer Screening Referral, Low Dose Chest CT Order (02/13/2024 3:00 AM EDT) 02/13/2024 3:00 AM EDT Annabella Sharp [facility] Edited Result - Final * HEPATITIS C ANTIBODY (06/18/2020 3:43 PM EST) HEPATITIS C VIRUS SCREEN NEGATIVE NEGATIVE [facility] Blood Blood / Unknown 06/18/2020 3 :43 PM EST 06/18/2020 7:49 PM EST [facility]ative [facility] - 06/18/2020 9:45 PM EST [employer], [place] [address] Auto Air Conditioning Installer - Sandra Thomason MD PT ID [id number] ORD# [id number] Annabella Sharp [facility] - BLOOD DRAW Edited Result - Final Performing Organization Address City/[facility]/ZIP Co de Phone Number [facility] [address] [place] [address], [place] [phone] * HIV-1 & HIV-2 ANTIBODIES (06/18/2020 3:43 PM EST) [facility] HIV 1 AND 2 ANTIBODY SCREEN NEGATIVE NEGATIVE [facility] Comment: This assay is a 4th generation assay allowing for earlier detection of HIV infection by detecting the presence of the HIV-1 p24 antigen as well as the traditional antibodies to HIV type 1 (including group O) and type 2. Use of a 4th generation assay is the current CDC recommendation for HIV screening. Blood Blood / Unknown 06/18/2020 3 :43 PM EST 06/18/2020 7:49 PM EST Narrative [facility] - 06/18/2020 9:46 PM EST [employer], a member of [address] [address] Auto Air Conditioning Installer - Sandra Thomason MD PT ID [id number] ORD# [id number] Annabella Sharp [facility] - BLOOD DRAW Edited Result - Final Performing Organization Address City/[facility] Co de Phone Number [address] [address], [place] [phone] from Last 3 Months or Most Recently Relevant to Health Maintenance Insurance [employer] Care Teams Keno Manager Relationship Specialty Start Date End Date Annabella Sharp FNP [address] [place] [id number] PCP - General Internal Medicine 02/19/20
== END 2024-11-01 16:10 | disposition home or self-care (01) ==
LOC: HO.HOS 15:06
PROVIDERS: PCP Dentist General Practice
DX: M79.671 Pain in right foot (principal); M79.672 Pain in left foot; M92.61 Juvenile osteochondrosis of tarsus, right ankle; M92.62 Juvenile osteochondrosis of tarsus, left ankle
CPT/HCPCS: 99213

== ENCOUNTER 2024-11-01 15:05 | Outpatient (REF) | payer MEDICAID, SELFPAY ==
--- NOTE | ~2024-11-01 | XR_ITS ---
Exam: Three-view bilateral feet TECHNIQUE: AP lateral and oblique views bilateral feet INDICATION: Right foot pain FINDINGS: Right foot: There is mild asymmetric narrowing and marginal osteophytes the first MTP joint. Joint spaces are otherwise preserved. No fracture is evident. Left foot: Mild hallux valgus deformity. Moderate osteophytes and minimal narrowing is seen at the first MTP joint. 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 Left foot: Mild hallux valgus deformity and mild osteoarthritis of the first MTP joint. Electronically signed by: Kvng Zhao MD 11/01/2024 04:23 PM EDT
== END 2024-11-01 15:06 | disposition home or self-care (01) ==
LOC: HO.HOSX 15:05
PROVIDERS: PCP Dentist General Practice
DX: M79.671 Pain in right foot (principal); M79.672 Pain in left foot; M92.61 Juvenile osteochondrosis of tarsus, right ankle; M92.62 Juvenile osteochondrosis of tarsus, left ankle
CPT/HCPCS: 73630; 99212

== ENCOUNTER → 2024-11-01 15:36 | Outpatient (BNV) | payer MEDICAID, SELFPAY | PROVIDERS: PCP Dentist General Practice; Visit Provider Radiology Diagnostic Radiology | DX: M79.671 Pain in right foot (principal); M19.072 Primary osteoarthritis, left ankle and foot | CPT/HCPCS: 73630 ==